=== PATIENT | male | born 1975 | race Caucasian/White ===

== ENCOUNTER 2017-12-09 11:14 | Emergency (ER) | payer SELFPAY ==
[2017-12-09] MEDS: LIDOCAINE WITH 8.4% SOD BICARB 3 ML DISP.SYRIN. INJ (11:45)
== END 2017-12-09 12:43 | disposition home or self-care (01) ==
LOC: ER 11:14
DX: T63.301A Toxic effect of unspecified spider venom, accidental (unintentional), initial encounter (principal); M79.89 Other specified soft tissue disorders; Z86.73 Personal history of transient ischemic attack (TIA), and cerebral infarction without residual deficits; Z88.0 Allergy status to penicillin; Z88.8 Allergy status to other drugs, medicaments and biological substances; Z88.1 Allergy status to other antibiotic agents; Z91.013 Allergy to seafood; Y92.89 Other specified places as the place of occurrence of the external cause
CPT/HCPCS: 10060; 99283

== ENCOUNTER 2018-10-23 11:36 | Emergency (ER) | payer SELFPAY ==
[~2018-10-23] VITALS: Ht 175.3 cm; Wt 113.4 kg
[~2018-10-23 11:36] MED LIST: CLIN300C8 PO; HYDR-2761 PO; PHEN100C PO; PROP120C48 PO; TRAM50TA PO
[2018-10-23] MEDS ORDERED: fentaNYL PF VIAL 100 MCG/2 ML VIAL IV ONE (12:00)
[2018-10-23] MEDS ORDERED: IV NORMAL SALINE 1000ML BAG 1,000 ML IV ONE (12:00)
[2018-10-23] MEDS ORDERED: ONDANSETRON PF 4 MG/2 ML VIAL. IV ONE (12:00)
[2018-10-23] MEDS ORDERED: ONDANSETRON PF 4 MG/2 ML VIAL. ONE (12:10)
[2018-10-23 12:15] LABS: BASO # 0.1 x10^3/uL (0.0-0.2); BASO % 1 % (0-3); EOS # 0.2 x10^3/uL (0.0-0.7); EOS % 2 % (0-3); HEMATOCRIT 45.7 % (39.0-53.0); HEMOGLOBIN 15.7 g/dL (13.0-17.5); LYMPH # 1.6 x10^3/uL (1.0-4.8); LYMPH % 19 % (24-48); MEAN CORPUSCULAR HEMOGLOBIN 30 pg (25-35); MEAN CORPUSCULAR HGB CONC 34 g/dL (31-37); MEAN CORPUSCULAR VOLUME 87 fL (79-100); MONO # 0.8 x10^3/uL (0.0-1.1); MONO % 10 % (0-9); NEUT # 5.7 x10^3uL (1.8-7.7); NEUT % 68 % (31-73); PLATELET COUNT 169 x10^3/uL (140-400); RED BLOOD COUNT 5.25 x10^6/uL (4.30-5.70); RED CELL DISTRIBUTION WIDTH 14.2 % (11.5-14.5); WHITE BLOOD COUNT 8.4 x10^3/uL (4.0-11.0)
--- NOTE | 2018-10-23 12:19 | PHYS DOC ---
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 Patient reports wound started 2-3 days ago and has been gradually worsening with pain radiating into right sided groin. Patient denies fever, urinary symptoms, or other wounds. Patient reports he has felt fatigued and intermittently nauseated denies vomiting or diarrhea episodes. Patient reports he was on metformin 6 months ago for questionable diabetes per his recollection of what doctors reported. Patient states he "didn't like that shit" so he stopped taking the medication. Denies having further f/u with his do ctor. He reports he has had polyuria/polydipsia- with family hx of DM. Patient reports history of seizures but he has been out of his Dilantin for the past month. Patient denies any seizure like activity. Patient reports he is a daily smoker, occasional beer drinker, and marijuana/meth use occasionally. Reports last meth use last week. Accu check during initial exam Review of Systems Review of Systems Constitutional: Denies fever or chills. Reports generalized fatigue Eyes: Denies change in visual acuity, redness, or eye pain [] HENT: Denies nasal congestion or sore throat [] Respiratory: Denies cough or shortness of breath [] Cardiovascular: No additional information not addressed in HPI [] GI: Denies vomiting, bloody stools or diarrhea. Reports rt lower abd pain at wound site into rt groin : Denies dysuria or hematuria [] Musculoskeletal: Denies back pain or joint pain [] Integument: Reports right lower abdominal wound with redness, swelling, and tenderness at site-denies injury or drainage Neurologic: Denies headache, focal weakness or sensory changes [] Endocrine: Reports polyuria or polydipsia [] All other systems were reviewed and found to be within normal limits, except as documented in this note. Current Medications Current Medications Current Medications Medications (Trade) Dose Ordered Sig/Kim Start Time Stop Time Status Last Admin Dose Admin Fentanyl Citrate (Fentanyl 2ml Vial) 25 mcg 1X ONCE 10/23/18 12:00 10/23/18 12:06 DC 10/23/18 12:13 25 MCG Ondansetron HCl (Zofran) 4 mg STK-MED ONCE 10/23/18 12:10 10/23/18 12:11 DC Sodium Chloride 1,000 ml @ 1,000 mls/hr 1X ONCE 10/23/18 12:00 10/23/18 12:59 DC 10/23/18 12:12 1,000 MLS/HR Allergies Allergies Allergies Coded Allergies Type Severity Reaction Last Updated Verified Cephalexin Monohydrate Allergy Unknown 09/27/13 Yes Fish Containing Products Allergy Unknown 09/27/13 Yes Penicillins Allergy Unknown 09/27/13 Yes amoxicillin Allergy Unknown 09/27/13 Yes ondansetron HCl Allergy Unknown 09/26/13 Yes Physical Exam Physical Exam Constitutional: Well developed, well nourished, no acute distress, non-toxic ap pearance. [] HENT: Normocephalic, atraumatic, oropharynx moist, nose normal. [] Eyes: Pupils equal, conjunctiva normal, no discharge. [] Neck: Normal range of motion, no tenderness, supple, no stridor. [] Cardiovascular: Heart rate regular rhythm, no murmur [] Lungs & Thorax: Bilateral breath sounds clear to auscultation- resp. equal/nonlabored Abdomen: Bowel sounds normal, soft/obese- no distention/rigidity, no masses, no pulsatile masses. [] RN at bedside for exam-patient shaves and has multiple scabbed area in suprapubic area- no erythema at site and sites are scabbed. Patient has tenderness in the right groin right side scrotum without erythema/swelling. No penile sores/drainage Skin: Warm, dry, no erythema, no rash. [] Back: No tenderness, no CVA tenderness. [] Extremities: No tenderness, no cyanosis, no clubbing, ROM intact, no edema. [] Neurologic: Alert and oriented X 3, normal motor function, normal sensory function, no focal deficits noted. [] Psychologic: Affect normal, judgement normal, mood normal. [] Current Patient Data Vital Signs Vital Signs Date Time Temp Pulse Resp B/P (MAP) Pulse Ox O2 Delivery O2 Flow Rate FiO2 10/23/18 12:13 18 10/23/18 11:47 98.0 104 156/84 (108) 94 Room Air 98.0 Lab Values Laboratory Tests Test 10/23/18 11:56 10/23/18 12:10 Glucose (Fingerstick) 104 mg/dL (70-99) H White Blood Count 8.4 x10^3/uL (4.0-11.0) Red Blood Count 5.25 x10^6/uL (4.30-5.70) Hemoglobin 15.7 g/dL (13.0-17.5) Hematocrit 45.7 % (39.0-53.0) Mean Corpuscular Volume 87 fL (79-100) Mean Corpuscular Hemoglobin 30 pg (25-35) Mean Corpuscular Hemoglobin Concent 34 g/dL (31-37) Red Cell Distribution Width 14.2 % (11.5-14.5) Platelet Count 169 x10^3/uL (140-400) Neutrophils (%) (Auto) 68 % (31-73) Lymphocytes (%) (Auto) 19 % (24-48) L Monocytes (%) (Auto) 10 % (0-9) H Eosinophils (%) (Auto) 2 % (0-3) Basophils (%) (Auto) 1 % (0-3) Neutrophils # (Auto) 5.7 x10^3uL (1.8-7.7) Lymphocytes # (Auto) 1.6 x10^3/uL (1.0-4.8) Monocytes # (Auto) 0.8 x10^3/uL (0.0-1.1) Eosinophils # (Auto) 0.2 x10^3/uL (0.0-0.7) Basophils # (Auto) 0.1 x10^3/uL (0.0-0.2) Sodium Level 140 mmol/L (136-145) Potassium Level 3.8 mmol/L (3.5-5.1) Chloride Level 103 mmol/L (98-107) Carbon Dioxide Level 28 mmol/L (21-32) Anion Gap 9 (6-14) Blood Urea Nitrogen 16 mg/dL (8-26) Creatinine 1.1 mg/dL (0.7-1.3) Estimated GFR (Cockcroft-Gault) 73.4 BUN/Creatinine Ratio 15 (6-20) Glucose Level 118 mg/dL (70-99) H Lactic Acid Level 1.6 mmol/L (0.4-2.0) Calcium Level 9.1 mg/dL (8.5-10.1) Total Bilirubin 0.3 mg/dL (0.2-1.0) Aspartate Amino Transferase (AST) 26 U/L (15-37) Alanine Aminotransferase (ALT) 34 U/L (16-63) Alkaline Phosphatase 129 U/L (46-116) H Total Protein 7.2 g/dL (6.4-8.2) Albumin 3.4 g/dL (3.4-5.0) Albumin/Globulin Ratio 0.9 (1.0-1.7) L Laboratory Tests 10/23/18 12:10 Laboratory Tests 10/23/18 12:10 EKG EKG [] Radiology/Procedures Radiology/Procedures [] Course & Med Decision Making Course & Med Decision Making Pertinent Labs reviewed. (See chart for details) 1252: Pt was evaluated in the ER for complaints of wound to right lower abdomen. Labs were obtained and patient was provided with IV fluids and dose pain medication. Patient was afebrile and nontoxic in appearance. Labs were unremarkable with normal limits WBCs and lactic acid. Test results were discussed with patient. Discussed plans for prescription for Bactrim and patient to apply warm compress to affected area daily. Will provide patient with community clinic resource sheet for follow-up purposes. Patient advised to continue monitoring wound. Wound was indurated with no area of fluctuation for drainage. Education provided on signs and symptoms to return to ER. Discharge instructions were discussed. Patient to follow-up with primary care physician if symptoms persist or with any concerns. Pt advised on need for follow-up with his doctor for prescriptions and further care on ongoing medical issues. Drug and smoking cessation was discussed with patient. Patient had not initially reported he was allergic to Bactrim however when RN presented his discharge paperwork with Bactrim prescription he said he does have an allergy. Prescription was switched to clindamycin. Dragon Disclaimer Dragon Disclaimer This electronic medical record was generated, in whole or in part, using a voice recognition dictation system. Departure Departure Impression: Primary Impression: Abscess Additional Impression: Cellulitis Disposition: HOME, SELF-CARE Condition: STABLE Referrals: NO PCP (PCP) Patient Instructions: Abscess, Cellulitis Additional Instructions: Apply warm compress to affected area every 3-4 hours for 20-30 minutes at a time. Wearing jeans place a dressing over the wound to prevent irritation from her belt. Follow-up with your primary care physician for reevaluation and further care. You need to discuss options for treatment for your ongoing medical issues as well. Scripts Clindamycin Hcl (CLINDAMYCIN HCL) 300 Mg Capsule 1 CAP PO TID, #21 CAP 0 Refills Prov: HARVEY CHILDS APRN 10/23/18 Hydrocodone/Apap 5-325 (NORCO 5-325 TABLET) 1 Each Tablet 1 TAB PO PRN Q6HRS PRN for PAIN, #6 TAB 0 Refills No drinking alcohol or driving while taking this medication Prov: HARVEY CHILDS APRN 10/23/18 Problem Qualifiers HARVEY CHILDS APRN October 23, 2018 12:19
[2018-10-23 12:27] LABS: CALCIUM 9.1 mg/dL (8.5-10.1); CREATININE 1.1 mg/dL (0.7-1.3); GFR 73.4; POTASSIUM 3.8 mmol/L (3.5-5.1)
[2018-10-23 12:33] LABS: ALBUMIN 3.4 g/dL (3.4-5.0); ALBUMIN/GLOBULIN RATIO 0.9 (1.0-1.7); TOTAL BILIRUBIN 0.3 mg/dL (0.2-1.0); TOTAL PROTEIN 7.2 g/dL (6.4-8.2)
[2018-10-23] MEDS ORDERED: SULF1TAB24 PO (12:58)
[2018-10-23] MEDS ORDERED: HYDR-3164 PO (12:58)
[2018-10-23 13:13] VITALS: BP 135/80
[2018-10-23] MEDS ORDERED: CLIN300C8 PO (13:24)
== END 2018-10-23 13:25 | disposition home or self-care (01) ==
LOC: ER 11:36
DX: L02.214 Cutaneous abscess of groin (principal); L03.314 Cellulitis of groin; R53.83 Other fatigue; R11.0 Nausea; R30.0 Dysuria; R63.1 Polydipsia; F12.90 Cannabis use, unspecified, uncomplicated; F15.90 Other stimulant use, unspecified, uncomplicated; F17.200 Nicotine dependence, unspecified, uncomplicated; E11.9 Type 2 diabetes mellitus without complications; I10 Essential (primary) hypertension; Z86.73 Personal history of transient ischemic attack (TIA), and cerebral infarction without residual deficits; Z87.442 Personal history of urinary calculi; Z88.1 Allergy status to other antibiotic agents; Z88.0 Allergy status to penicillin; Z88.8 Allergy status to other drugs, medicaments and biological substances; Z91.013 Allergy to seafood
CPT/HCPCS: 36415; 80053; 82962; 83605; 85025; 96374; 99284; J3010; J7030

== ENCOUNTER 2018-11-11 04:24 | Emergency (ER) | payer SELFPAY ==
[~2018-11-11 04:24] MED LIST changes: +HYDR-3164 PO; +SULF1TAB24 PO
== END 2018-11-11 04:40 | disposition left against medical advice (07) ==
LOC: ER 04:24
DX: L02.214 Cutaneous abscess of groin (principal); Z53.21 Procedure and treatment not carried out due to patient leaving prior to being seen by health care provider

== ENCOUNTER 2018-12-23 08:50 | Emergency (ER) | payer SELFPAY ==
[~2018-12-23] VITALS: Ht 175.3 cm; Wt 115.7 kg
[~2018-12-23 08:50] MED LIST changes: +PRED20TA PO
[2018-12-23] MEDS ORDERED: ORPHENADRINE CITRATE 60 MG/2 ML VIAL. IM ONE (09:00)
[2018-12-23] MEDS ORDERED: HYDROcodone/APAP 5/325MG 1 TAB TABLET PO ONE (09:00)
[2018-12-23] MEDS ORDERED: IBUPROFEN 200 MG TABLET. PO ONE (09:00)
--- NOTE | 2018-12-23 09:12 | PHYS DOC ---
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 HPI Patient is a 43 year old male who presents with states 3 days ago his cousin was "duck walking" , spine to try to get his back to pop. Patient states when this occurred he felt a pop or crushing pain in his left ribs and the pain is gotten progressively worse to where he feels like something is sticking into his spine. Patient states she did go to [facility] after this occurred in they took x-rays and said nothing was wrong. Patient states the pain is gotten progressively worse and he is not spitting up blood. Patient rates his pain a 10 out 10 at this time. Review of Systems Review of Systems Constitutional: Denies fever or chills [] Eyes: Denies change in visual acuity, redness, or eye pain [] HENT: Denies nasal congestion or sore throat [] Respiratory: cough with blood or shortness of breath [] Cardiovascular: No additional information not addressed in HPI [] GI: Denies abdominal pain, nausea, vomiting, bloody stools or diarrhea [] : Denies dysuria or hematuria [] Musculoskeletal: back pain and left rib pain or joint pain [] Integument: Denies rash or skin lesions [] Neurologic: Denies headache, focal weakness or sensory changes [] Endocrine: Denies polyuria or polydipsia [] All other systems were reviewed and found to be within normal limits, except as documented in this note. Current Medications Current Medications Current Medications Medications (Trade) Dose Ordered Sig/[facility] Start Time Stop Time Status Last Admin Dose Admin Acetaminophen/ Hydrocodone Bitart (Lortab 5/325) 1 tab 1X ONCE 12/23/18 09:00 12/23/18 09:02 DC 12/23/18 09:26 1 TAB Fentanyl Citrate (Fentanyl 2ml Vial) 50 mcg 1X ONCE 12/23/18 10:00 12/23/18 10:01 DC 12/23/18 10:09 50 MCG Ibuprofen (Motrin) 600 mg 1X ONCE 12/23/18 09:00 12/23/18 09:02 DC 12/23/18 09:26 600 MG Orphenadrine Citrate (Norflex) 60 mg 1X ONCE 12/23/18 09:00 12/23/18 09:02 DC 12/23/18 09:37 60 MG Allergies Allergies Allergies Coded Allergies Type Severity Reaction Last Updated Verified Cephalexin Monohydrate Allergy Intermediate 10/23/18 Yes Fish Containing Products Allergy Intermediate 10/23/18 Yes Penicillins Allergy Intermediate 10/23/18 Yes amoxicillin Allergy Intermediate 10/23/18 Yes ondansetron HCl Allergy Intermediate 10/23/18 Yes sulfamethoxazole Allergy Intermediate HANDS SWELL 10/23/18 Yes trimethoprim Allergy Intermediate HANDS SWELL 10/23/18 Yes Physical Exam Physical Exam Constitutional: Well developed, well nourished, no acute distress, non-toxic appearance. [] HENT: Normocephalic, atraumatic, bilateral external ears normal, oropharynx moist, no oral exudates, nose normal. [] Eyes: PERRLA, EOMI, conjunctiva normal, no discharge. [] Neck: Normal range of motion, no tenderness, supple, no stridor. [] Cardiovascular:Heart rate regular rhythm, no murmur [] Lungs & Thorax: Upper Bilateral breath sounds clear to auscultation, Left lower coarse, right lower clear [] Abdomen: Bowel sounds normal, soft, no tenderness, no masses, no pulsatile masses. [] Skin: Warm, dry, no erythema, no rash. [] Back: Cervical, thoracic, left ribs tenderness, no CVA tenderness. [] Extremities: No tenderness, no cyanosis, no clubbing, ROM intact, Bilateral lower 3+ edema. [] Neurologic: Alert and oriented X 3, normal motor function, normal sensory function, no focal deficits noted. [] Psychologic: Affect normal, judgement normal, mood normal. [] Current Patient Data Vital Signs Vital Signs Date Time Temp Pulse Resp B/P (MAP) Pulse Ox O2 Delivery O2 Flow Rate FiO2 12/23/18 11:08 90 168/78 (108) 100 Room Air 12/23/18 10:09 18 12/23/18 08:57 98.0 98.0 Lab Values Laboratory Tests Test 12/23/18 11:25 D-Dimer (Leena) 0.43 ug/mlFEU (0.00-0.50) EKG EKG Sinus Rhythm and no STEMI Interpretation Time: [address] Bennett Radiology/Procedures Radiology/Procedures [] Impressions: [facility] [address] [place] [address] IMAGING REPORT Signed PATIENT: GLEN ONTIVEROS ACCOUNT: [id number] : 1975 LOCATION: ER AGE: 43 SEX: M EXAM STATUS: REG ER ORD. PHYSICIAN: LINDA HINES APRN REASON: point tenderness, soa, Left rib pain more prominent PROCEDURE: RIBS BILAT & PA CXR 4+V RIBS BILAT PA CXR 4+V History: Shortness of breath. Left rib pain. COMPARISON: Single view chest x-ray of November 01, 2008, images available but not the report. FINDINGS: Heart size is not enlarged. No evidence of pneumothorax or pleural effusion. There are mild markings in the lung bases, likely atelectasis, no lobar airspace consolidation. There is a small metallic density or foreign body at the inferior left neck soft tissue. This was seen on the prior chest x-ray. No definite displaced rib fracture seen, although a specific area of point tenderness is not known. IMPRESSION: Mild bibasilar lung markings, likely atelectasis. Electronically signed by: Stanton Wilkinson MD (12/23/2018 9:53 AM) [id number] DICTATED and SIGNED BY: STANTON WILKINSON MD DATE: 12/23/18 0953 [facility] [address] [place], [place] [id number] IMAGING REPORT Signed PATIENT: GLEN ONTIVEROS ACCOUNT: [id number] : 1975 LOCATION: ER AGE: 43 SEX: M EXAM STATUS: REG ER ORD. PHYSICIAN: LINDA HINES APRN REASON: point tenderness PROCEDURE: CT CERVICAL SPINE WO CONTRAST Examination: CT cervical spine and thoracic spine without contrast HISTORY: History of pain, point tenderness. TECHNIQUE: Axial CT images of the cervical thoracic spine were performed without contrast. Coronal and sagittal reformats are performed. Exposure: One or more of the following individualized dose reduction techniques were utilized for this examination: 1. Automated exposure control 2. Adjustment of the mA and/or kV according to patient size 3. Use of iterative reconstruction technique COMPARISON: 07/19/2007 cervical spine FINDINGS: Vertebral body height and alignment are maintained. Cervical lordosis is preserved. The lateral masses of C1 are aligned upon C2. No fractures identified. The bony canal is patent throughout. Mild intervertebral disc height loss identified in the cervical spine particularly at C5-C6, C6 and vertebral levels. The bilateral facets are well aligned. The paraspinous soft tissues are unremarkable. Visualized intracranial contents are unremarkable. Lung apices are clear. The thoracic vertebral bodies are aligned. There is no loss of vertebral body stature. Evaluation of the central canal is limited without contrast. Mild intervertebral disc height loss identified throughout the thoracic spine. The bilateral facets are well aligned. Impression: 1. No acute fracture of the cervical and thoracic spine. 2. Mild degenerative changes cervical spine and thoracic spine. Electronically signed by: Medardo Aguila MD (12/23/2018 11:07 AM) [facility] DICTATED and SIGNED BY: MEDARDO AGUILA MD DATE: 12/23/18 1107 Course & Med Decision Making Course & Med Decision Making Patient is a 43 year old male who presents with states 3 days ago his cousin was "duck walking" , spine to try to get his back to pop. Patient states when this occurred he felt a pop or crushing pain in his left ribs and the pain is gotten progressively worse to where he feels like something is sticking into his spine. Patient states she did go to [facility] after this occurred in they took x-rays and said nothing was wrong. Patient states the pain is gotten progressively worse and he is not spitting up blood. Patient rates his pain a 10 out 10 at this time. The pain is sharp and shooting down the back of his bilateral lower legs also. Denies numbness or tingling, Patient has cervical spine bony tenderness down the thoracic and no lumbar tenderness. Patient has left rib tenderness all the way down his left side. No crepitus felt. There is no deformities felt on spine or in ribs. Patient does seem diaphoretic. Skin is pink and warm. Bilateral upper lobe lungs are clear to auscultation but left lower lung is course and right lower lung clear. Heart rate regular without murmur. Patient states is very hard for him to ambulate because of the pain that he feels in his back and that he fell over to the side today. He states his sharp stabbing pain. Patient states it does hurt when he takes a deep breath especially the left side. Patient states he has shortness of breath but denies chest pain, nausea, vomiting, syncope, dizziness. PERRLA. Speaks in full clear sentences. Patient also complains of bilateral lower leg edema that has recently started since this happened 3 days ago. Patient has 3-4+ Edema in bilateral lower extremities. Patient states he's been sitting upright in a recliner with his legs dangling. Patient states this is new for him and states he can usually see his ankles. Patient is a smoker and has a history of TIA, seizures, kidney stones, hypertension, diabetes. Vital signs wnl. Patient was refusing CT scans of his spine due to was too painful to lay back. Patient states the [place], ibuprofen, orphenadrine was not coming is painful enough that he can lay flat. I have told the patient he is having point tenderness spinal pain and I can not properly;y evaluate him without CT. Patient states he understands this and agrees to a pain shot. Xray shows Mild bibasilar lung markings, likely atelectasis. CT shows 1. No acute fracture of the cervical and thoracic spine. 2. Mild degenerative changes cervical spine and thoracic spine. DDIMER negative. Patient will be given a incentive spirometer due to atelectasis because patient is likely not taking a deep breath due to pain. Follow up with primary care. Take medications as prescribed. [] Dragon Disclaimer Dragon Disclaimer This electronic medical record was generated, in whole or in part, using a voice recognition dictation system. PERC Rule for PE PERC Rule for PE Response (Comments) Value Age > 50: No 0 HR > 100: No 0 Sa02 on room air <95%: No 0 Unilateral leg swelling: No 0 Hemoptysis: Yes 1 Recent surgery or trauma: No 0 Prior PE or DVT: No 0 Hormone use: No 0 Total 1 Departure Departure Impression: Primary Impression: Muscle spasm Additional Impression: Contusion Disposition: HOME, SELF-CARE Condition: STABLE Referrals: NO PCP (PCP) Patient Instructions: Back Pain, Adult, Muscle Strain Additional Instructions: Follow-up her primary care provider. Take medications as prescribed. Try using a heating pad. Scripts Ibuprofen (IBUPROFEN) 600 Mg Tablet 600 MG PO PRN Q6HRS PRN for INFLAMMATION, #20 TAB Prov: ILNDA HINES APRN 12/23/18 Hydrocodone Bit/Acetaminophen (HYDROCODONE-APAP 5-325 ) 1 Tab Tablet 1 TAB PO PRN Q6HRS PRN for PAIN, #10 TAB 0 Refills Prov: LINDA HINES APRN 12/23/18 Orphenadrine Citrate (ORPHENADRINE CITRATE) 100 Mg Tablet.er 1 TAB PO BID, #20 TAB 1 Refill Prov: LINDA HINES APRN 12/23/18 Problem Qualifiers Additional Impression: Contusion Encounter type: initial encounter Contusion area: thoracic wall Contusion of thoracic wall detail: back wall of thorax Laterality: left Qualified Codes: S20.222A - Contusion of left back wall of thorax, initial encounter LINDA HINES APRN Dec 23, 2018 09:12
--- NOTE | 2018-12-23 09:56 | RAD ---
RIBS BILAT PA CXR 4+V History: Shortness of breath. Left rib pain. COMPARISON: Single view chest x-ray of November 01, 2008, images available but not the report. FINDINGS: Heart size is not enlarged. No evidence of pneumothorax or pleural effusion. There are mild markings in the lung bases, likely atelectasis, no lobar airspace consolidation. There is a small metallic density or foreign body at the inferior left neck soft tissue. This was seen on the prior chest x-ray. No definite displaced rib fracture seen, although a specific area of point tenderness is not known. IMPRESSION: Mild bibasilar lung markings, likely atelectasis. Electronically signed by: Stanton Wilkinson MD (12/23/2018 9:53 AM) [facility]
[2018-12-23] MEDS ORDERED: fentaNYL PF VIAL 100 MCG/2 ML VIAL IV ONE (10:00)
--- NOTE | 2018-12-23 11:06 | EKG ---
[facility] [address] [place] [address] Test Date: 2018-12-23 Test Time: 09:30:53 Pat Name: GLEN ONTIVEROS Department: Room: Gender: M Director Payer: : 1975 Requested By: LINDA HINES Order Number: [id number] Reading MD: Measurements Intervals [place] Rate: 79 P: 32 MT: 158 QRS: 16 QRSD: 84 T: 23 QT: 366 QTc: 421 Interpretive Statements SINUS RHYTHM NO SPECIFIC ECG ABNORMALITIES RI6.01 No previous ECG available for comparison
--- NOTE | 2018-12-23 11:10 | RAD ---
Examination: CT cervical spine and thoracic spine without contrast HISTORY: History of pain, point tenderness. TECHNIQUE: Axial CT images of the cervical thoracic spine were performed without contrast. Coronal and sagittal reformats are performed. Exposure: One or more of the following individualized dose reduction techniques were utilized for this examination: 1. Automated exposure control 2. Adjustment of the mA and/or kV according to patient size 3. Use of iterative reconstruction technique COMPARISON: 07/19/2007 cervical spine FINDINGS: Vertebral body height and alignment are maintained. Cervical lordosis is preserved. The lateral masses of C1 are aligned upon C2. No fractures identified. The bony canal is patent throughout. Mild intervertebral disc height loss identified in the cervical spine particularly at C5-C6, C6 and vertebral levels. The bilateral facets are well aligned. The paraspinous soft tissues are unremarkable. Visualized intracranial contents are unremarkable. Lung apices are clear. The thoracic vertebral bodies are aligned. There is no loss of vertebral body stature. Evaluation of the central canal is limited without contrast. Mild intervertebral disc height loss identified throughout the thoracic spine. The bilateral facets are well aligned. Impression: 1. No acute fracture of the cervical and thoracic spine. 2. Mild degenerative changes cervical spine and thoracic spine. Electronically signed by: Medardo Aguila MD (12/23/2018 11:07 AM) [facility]
[2018-12-23] MEDS ORDERED: HYDR-2761 PO (12:11)
[2018-12-23] MEDS ORDERED: ORPH100T PO (12:11)
[2018-12-23] MEDS ORDERED: IBUP-1007 PO (12:11)
[2018-12-23 12:38] VITALS: BP 119/57
== END 2018-12-23 12:50 | disposition home or self-care (01) ==
LOC: ER 08:50
DX: S20.222A Contusion of left back wall of thorax, initial encounter (principal); S20.212A Contusion of left front wall of thorax, initial encounter; M62.830 Muscle spasm of back; E11.9 Type 2 diabetes mellitus without complications; I10 Essential (primary) hypertension; Z86.73 Personal history of transient ischemic attack (TIA), and cerebral infarction without residual deficits; Z87.442 Personal history of urinary calculi; Z88.2 Allergy status to sulfonamides; Z88.8 Allergy status to other drugs, medicaments and biological substances; Z88.1 Allergy status to other antibiotic agents; Z88.0 Allergy status to penicillin; Z91.013 Allergy to seafood; X50.9XXA Other and unspecified overexertion or strenuous movements or postures, initial encounter; Y93.89 Activity, other specified; Y92.89 Other specified places as the place of occurrence of the external cause; Y99.8 Other external cause status
CPT/HCPCS: 36415; 71111; 72125; 72128; 85379; 93005; 96372; 96374; 99285; J2360; J3010

== ENCOUNTER 2019-02-24 14:57 | Emergency (ER) | payer SELFPAY ==
[~2019-02-24] VITALS: Ht 175.3 cm; Wt 122.5 kg
[~2019-02-24 14:57] MED LIST changes: +IBUP-1007 PO; +ORPH100T PO
[2019-02-24 16:03] VITALS: BP 137/81
--- NOTE | 2019-02-24 16:29 | PHYS DOC ---
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 Patient denies any fever. Review of Systems Review of Systems Constitutional: Denies fever or chills [] Musculoskeletal: Denies back pain or joint pain [] Integument: Reports abscess to the right buttock Neurologic: Denies headache, focal weakness or sensory changes [] All other systems were reviewed and found to be within normal limits, except as documented in this note. Allergies Allergies Allergies Coded Allergies Type Severity Reaction Last Updated Verified Cephalexin Monohydrate Allergy Intermediate 10/23/18 Yes Fish Containing Products Allergy Intermediate 10/23/18 Yes Penicillins Allergy Intermediate 10/23/18 Yes amoxicillin Allergy Intermediate 10/23/18 Yes ondansetron HCl Allergy Intermediate 10/23/18 Yes sulfamethoxazole Allergy Intermediate HANDS SWELL 10/23/18 Yes trimethoprim Allergy Intermediate HANDS SWELL 10/23/18 Yes Physical Exam Physical Exam Constitutional: Well developed, well nourished, no acute distress, non-toxic appearance. [] Skin: Warm, dry, right buttock with an indurated area approximately 1 x 1 cm, the area is firm no fluctuance, there is erythema surrounding the area, the area is warm and tender to touch. Back: No tenderness, no CVA tenderness. [] Extremities: No tenderness, no cyanosis, no clubbing, ROM intact, no edema. [] Neurologic: Alert and oriented X 3, normal motor function, normal sensory function, no focal deficits noted. [] Psychologic: Affect normal, judgement normal, mood normal. [] Current Patient Data Vital Signs Vital Signs Date Time Temp Pulse Resp B/P (MAP) Pulse Ox O2 Delivery O2 Flow Rate FiO2 02/24/19 16:03 98.5 80 16 137/81 (99) 97 Room Air 98.5 EKG EKG [] Radiology/Procedures Radiology/Procedures Indication: abscess right buttock Procedure: The patient was positioned appropriately. Local anesthesia was not applicable. An 18-gauge needle was used to aspirate the area to find any fluctuance, none was found. The patient tolerated the procedure well. Complications: none.[] Course & Med Decision Making Course & Med Decision Making Pertinent Labs and Imaging studies reviewed. (See chart for details) This is a 43-year-old male patient who presents to the ED today with an abscess on the right buttock, I did attempt to drain this abscess with no success. Discharged on clindamycin, he is allergic to a lot of antibiotics. Tetanus up-to-date. Warm compresses recommended to the area. Follow-up with PCP in 1-2 weeks. Dragon Disclaimer Dragon Disclaimer This electronic medical record was generated, in whole or in part, using a voice recognition dictation system. Departure Departure Impression: Primary Impression: Cellulitis and abscess of buttock Disposition: HOME, SELF-CARE Condition: STABLE Referrals: NO PCP (PCP) VARUN LAKHANI MD follow up in 1-2 weeks Patient Instructions: Abscess Additional Instructions: You have an abscess on the right buttock, keep the area clean and dry. Apply warm compresses to the area twice a day. Follow-up with your own doctor in 1-2 weeks. Scripts Hydrocodone/Apap 5-325 (NORCO 5-325 TABLET) 1 Each Tablet 1 TAB PO Q6HRS, #12 TAB Prov: TANISHA KAUR APRN 02/24/19 Clindamycin Hcl (CLINDAMYCIN HCL) 300 Mg Capsule 1 CAP PO TID, #21 CAP Prov: TANISHA KAUR APRN 02/24/19 TANISHA KAUR APRN Feb 24, 2019 16:29
[2019-02-24] MEDS ORDERED: HYDR-3164 PO (16:34)
[2019-02-24] MEDS ORDERED: CLIN300C8 PO (16:34)
== END 2019-02-24 16:37 | disposition home or self-care (01) ==
LOC: ER 14:57
DX: L02.31 Cutaneous abscess of buttock (principal); E11.9 Type 2 diabetes mellitus without complications; I10 Essential (primary) hypertension; Z86.73 Personal history of transient ischemic attack (TIA), and cerebral infarction without residual deficits; Z95.5 Presence of coronary angioplasty implant and graft; Z87.442 Personal history of urinary calculi
CPT/HCPCS: 10060; 99283

== ENCOUNTER 2019-03-02 04:22 | Emergency (ER) | payer SELFPAY ==
[~2019-03-02] VITALS: Ht 175.3 cm; Wt 122.5 kg
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
[2019-03-02] MEDS ORDERED: HYDROcodone/APAP 5/325MG 1 TAB TABLET PO ONE (05:00)
[2019-03-02 05:08] LABS: BASO # 0.1 x10^3/uL (0.0-0.2); BASO % 1 % (0-3); EOS # 0.3 x10^3/uL (0.0-0.7); EOS % 5 % (0-3); HEMATOCRIT 43.8 % (39.0-53.0); LYMPH # 1.3 x10^3/uL (1.0-4.8); LYMPH % 21 % (24-48); MEAN CORPUSCULAR HEMOGLOBIN 30 pg (25-35); MEAN CORPUSCULAR HGB CONC 34 g/dL (31-37); MEAN CORPUSCULAR VOLUME 88 fL (79-100); MONO # 0.7 x10^3/uL (0.0-1.1); MONO % 11 % (0-9); NEUT # 3.9 x10^3/uL (1.8-7.7); NEUT % 62 % (31-73); PLATELET COUNT 171 x10^3/uL (140-400); RED BLOOD COUNT 4.96 x10^6/uL (4.30-5.70); RED CELL DISTRIBUTION WIDTH 14.2 % (11.5-14.5); WHITE BLOOD COUNT 6.3 x10^3/uL (4.0-11.0)
[2019-03-02 05:15] LABS: CALCIUM 8.8 mg/dL (8.5-10.1); CREATININE 1.1 mg/dL (0.7-1.3); GFR 73.1; POTASSIUM 3.8 mmol/L (3.5-5.1)
[2019-03-02 05:21] LABS: ALBUMIN 3.3 g/dL (3.4-5.0); TOTAL BILIRUBIN 0.2 mg/dL (0.2-1.0); TOTAL PROTEIN 6.7 g/dL (6.4-8.2)
[2019-03-02] MEDS ORDERED: CONTRAST GIVEN. MC PRN (05:30)
--- NOTE | 2019-03-02 05:39 | RAD ---
EXAM: CHEST ONE VIEW. HISTORY: Cough, chest pain. COMPARISON: 09/27/2013. FINDINGS: A frontal view of the chest is obtained. There are no confluent infiltrates. There is no pneumothorax or pleural effusion. The heart is mildly enlarged. IMPRESSION: 1. Mild cardiomegaly. Electronically signed by: Zeb Eden MD (03/02/2019 5:36 AM) [facility]
[2019-03-02] MEDS ORDERED: IOHEXOL 300 MG/ML 100ML VIAL. IV ONE (06:00)
--- NOTE | 2019-03-02 06:30 | RAD ---
EXAM: CT OF THE CHEST WITH CONTRAST. HISTORY: Hemoptysis. TECHNIQUE: Computed tomography of the chest was performed after the intravenous administration of iodinated contrast. COMPARISON: None. FINDINGS: Images of the upper abdomen reveal moderate diffuse hepatic steatosis. Bone windows reveal no suspicious lesions. There is a subacute to chronic left anterior seventh rib fracture. There are no pathologically enlarged mediastinal or axillary lymph nodes. There is no pleural or pericardial effusion. The heart is not enlarged. There are atherosclerotic calcifications of the coronary arteries. A windows reveal mild dependent atelectasis. There is no central bronchial lesion. IMPRESSION: 1. No central or bronchial lesion. No clear infiltrates. 2. At least moderate diffuse hepatic steatosis. *One or more of the following individualized dose reduction techniques were utilized for this examination: 1. Automated exposure control. 2. Adjustment of the mA and/or kV according to patient size. 3. Use of iterative reconstruction technique. Electronically signed by: Zeb Eden MD (03/02/2019 6:27 AM) [facility]
[2019-03-02] MEDS ORDERED: HYDR-3164 PO (06:57)
[2019-03-02] MEDS ORDERED: AZIT250T6 PO (06:57)
[2019-03-02 06:58] VITALS: BP 154/81
== END 2019-03-02 07:05 | disposition home or self-care (01) ==
LOC: ER 04:22
DX: R07.81 Pleurodynia (principal); R05 Cough; G89.11 Acute pain due to trauma; E11.9 Type 2 diabetes mellitus without complications; I10 Essential (primary) hypertension; Z86.73 Personal history of transient ischemic attack (TIA), and cerebral infarction without residual deficits; Z87.820 Personal history of traumatic brain injury; Z88.1 Allergy status to other antibiotic agents; Z91.013 Allergy to seafood; Z88.0 Allergy status to penicillin; Z88.2 Allergy status to sulfonamides; Z88.8 Allergy status to other drugs, medicaments and biological substances; V29.9XXA Motorcycle rider (driver) (passenger) injured in unspecified traffic accident, initial encounter; Y93.89 Activity, other specified; Y92.488 Other paved roadways as the place of occurrence of the external cause; Y99.8 Other external cause status
CPT/HCPCS: 36415; 71045; 71260; 80053; 85025; 99285; Q9967

== ENCOUNTER 2019-06-11 02:44 | Emergency (ER) | payer SELFPAY ==
[~2019-06-11] VITALS: Ht 175.3 cm; Wt 113.4 kg
[~2019-06-11 02:44] MED LIST changes: +AZIT250T6 PO
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
--- NOTE | 2019-06-11 03:20 | RAD ---
Right hand x-rays 3 views HISTORY: Right hand pain after trauma finding. FINDINGS: There is an old healed deformity of the fourth metacarpal head. There is a small 2 mm calcification along the radial aspect of the first MCP joint could represent a small ligament calcification from an old injury while a avulsion fracture fragment of the joint capsule or ligament at the joint is not excluded there is no bone donor site is evident and the sclerotic nature favors a chronic injury.. Osteoarthritis with bone spurs fourth and fifth DIP joints and at the first MCP joint. The remainder of the hand is intact. IMPRESSION: No definite acute osseous injury. 2 mm sclerotic calcification adjacent of the first MCP joint likely chronic ossicle from an old ligamentous or capsular injury. Osteoarthritis. See discussion above. Electronically signed by: Vicente Shields MD (06/11/2019 3:17 AM) [facility]
[2019-06-11 03:30] LABS: BASO # 0.1 x10^3/uL (0.0-0.2); BASO % 1 % (0-3); EOS # 0.3 x10^3/uL (0.0-0.7); EOS % 3 % (0-3); HEMATOCRIT 43.7 % (39.0-53.0); LYMPH # 1.5 x10^3/uL (1.0-4.8); LYMPH % 16 % (24-48); MEAN CORPUSCULAR HEMOGLOBIN 30 pg (25-35); MEAN CORPUSCULAR HGB CONC 34 g/dL (31-37); MEAN CORPUSCULAR VOLUME 87 fL (79-100); MONO # 0.9 x10^3/uL (0.0-1.1); MONO % 10 % (0-9); NEUT # 6.3 x10^3/uL (1.8-7.7); NEUT % 70 % (31-73); PLATELET COUNT 223 x10^3/uL (140-400); RED BLOOD COUNT 5.03 x10^6/uL (4.30-5.70); RED CELL DISTRIBUTION WIDTH 13.6 % (11.5-14.5); WHITE BLOOD COUNT 8.9 x10^3/uL (4.0-11.0)
[2019-06-11] MEDS ORDERED: ONDANSETRON ODT 4 MG TAB.RAPDIS. PO ONE (03:30)
[2019-06-11 03:42] LABS: CALCIUM 8.5 mg/dL (8.5-10.1); CREATININE 1.1 mg/dL (0.7-1.3); GFR 73.1; POTASSIUM 3.8 mmol/L (3.5-5.1)
[2019-06-11 03:48] LABS: ALBUMIN 3.2 g/dL (3.4-5.0); ALBUMIN/GLOBULIN RATIO 0.8 (1.0-1.7); TOTAL BILIRUBIN 0.4 mg/dL (0.2-1.0); TOTAL PROTEIN 7.3 g/dL (6.4-8.2)
[2019-06-11 03:50] VITALS: BP 127/71
[2019-06-11] MEDS ORDERED: CLIN300C8 PO (03:52)
[2019-06-11 03:55] LABS: BILIRUBIN,URINE NEGATIVE (NEG); CLARITY,URINE CLEAR; COLOR,URINE YELLOW; NITRITE,URINE NEGATIVE (NEG); PH,URINE 5.5; PROTEIN,URINE NEGATIVE (NEG-TRACE)
[2019-06-11 04:14] LABS: BACTERIA,URINE 0 /HPF (0-FEW); RBC,URINE 0 /HPF (0-2); WBC,URINE 0 /HPF (0-4)
[2019-06-11] MEDS ORDERED: KETOROLAC 60 MG/2 ML VIAL. IM ONE (04:30)
[2019-06-11] MEDS ORDERED: CLIN75SO12 PO (04:31)
== END 2019-06-11 04:50 | disposition home or self-care (01) ==
LOC: ER 02:44
DX: L73.2 Hidradenitis suppurativa (principal); L02.412 Cutaneous abscess of left axilla; L02.411 Cutaneous abscess of right axilla; M79.641 Pain in right hand; R31.9 Hematuria, unspecified; E11.9 Type 2 diabetes mellitus without complications; I10 Essential (primary) hypertension; F14.90 Cocaine use, unspecified, uncomplicated; F12.90 Cannabis use, unspecified, uncomplicated; Z86.73 Personal history of transient ischemic attack (TIA), and cerebral infarction without residual deficits; Z98.890 Other specified postprocedural states; Z88.1 Allergy status to other antibiotic agents; Z88.0 Allergy status to penicillin; Z88.2 Allergy status to sulfonamides; Z91.013 Allergy to seafood
CPT/HCPCS: 36415; 73130; 80053; 81001; 85025; 99285; Q0162

== ENCOUNTER 2019-12-17 17:06 | Emergency (ER) | payer SELFPAY ==
[~2019-12-17] VITALS: Ht 175.3 cm; Wt 122.7 kg
[~2019-12-17 17:06] MED LIST changes: +CLIN75SO12 PO
[2019-12-17] MEDS ORDERED: KETOROLAC 60 MG/2 ML VIAL. IM ONE (17:30)
[2019-12-17] MEDS ORDERED: ORPHENADRINE CITRATE 60 MG/2 ML VIAL. IM ONE (17:30)
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
[2019-12-17] MEDS ORDERED: METH-38 PO (17:43)
[2019-12-17] MEDS ORDERED: NAPR-514 PO (17:43)
--- NOTE | 2019-12-17 17:48 | RAD ---
Examination: CHEST AP ONLY History: Reason: trauma / Spl. Instructions: / History: Comparison: 03/02/2019 AP view of the chest. Findings: AP portable upright frontal view of the chest was obtained. The cardiomediastinal silhouette is normal. Lungs are clear. There is no pneumothorax. No pleural effusion is appreciated. No acute bone abnormality. IMPRESSION: No active disease. Consider further imaging if fracture is a persistent concern. Electronically signed by: Angus Adams MD (12/17/2019 5:45 PM) [id number]
[2019-12-17 18:00] VITALS: BP 155/86
== END 2019-12-17 18:15 | disposition home or self-care (01) ==
LOC: ER 17:06
DX: G89.11 Acute pain due to trauma (principal); R07.81 Pleurodynia; E11.9 Type 2 diabetes mellitus without complications; I10 Essential (primary) hypertension; F17.200 Nicotine dependence, unspecified, uncomplicated; F12.90 Cannabis use, unspecified, uncomplicated; F14.90 Cocaine use, unspecified, uncomplicated; Z86.73 Personal history of transient ischemic attack (TIA), and cerebral infarction without residual deficits; Z98.890 Other specified postprocedural states; Z88.0 Allergy status to penicillin; Z88.1 Allergy status to other antibiotic agents; Z88.2 Allergy status to sulfonamides; Z91.013 Allergy to seafood; Z88.8 Allergy status to other drugs, medicaments and biological substances; Y00.XXXA Assault by blunt object, initial encounter; Y93.89 Activity, other specified; Y92.89 Other specified places as the place of occurrence of the external cause; Y99.8 Other external cause status
CPT/HCPCS: 71045; 96372; 99284; J1885; J2360

== ENCOUNTER 2020-01-24 11:15 | Inpatient (IN) | payer SELFPAY ==
[~2020-01-24] VITALS: Ht 175.3 cm; Wt 131.0 kg
[~2020-01-24 11:15] MED LIST changes: +METH-38 PO; +NAPR-514 PO
--- NOTE | 2020-01-24 12:07 | EKG ---
[facility] [address] [place] [address] Test Date: 2020-01-24 Test Time: 11:56:54 Pat Name: GLEN ONTIVEROS Department: Room: Gender: M [place]: : 1975 Requested By: MARA BO Order Number: [id number] Reading MD: Measurements Intervals [place] Rate: 107 P: 22 CT: 148 QRS: 26 QRSD: 80 T: 27 QT: 334 QTc: 451 Interpretive Statements SINUS TACHYCARDIA LOW LIMB LEAD VOLTAGE NO SPECIFIC ECG ABNORMALITIES RI6.02 Compared to ECG 01/24/2020 11:46:33 Atrial abnormality no longer present Myocardial infarct finding no longer present
[2020-01-24 12:21] LABS: BASO # 0.1 x10^3/uL (0.0-0.2); BASO % 1 % (0-3); EOS # 0.1 x10^3/uL (0.0-0.7); EOS % 2 % (0-3); HEMATOCRIT 44.9 % (39.0-53.0); HEMOGLOBIN 15.5 g/dL (13.0-17.5); LYMPH # 0.9 x10^3/uL (1.0-4.8); LYMPH % 10 % (24-48); MEAN CORPUSCULAR HEMOGLOBIN 30 pg (25-35); MEAN CORPUSCULAR HGB CONC 35 g/dL (31-37); MEAN CORPUSCULAR VOLUME 88 fL (79-100); MONO # 0.9 x10^3/uL (0.0-1.1); MONO % 9 % (0-9); NEUT # 7.3 x10^3/uL (1.8-7.7); NEUT % 79 % (31-73); PLATELET COUNT 196 x10^3/uL (140-400); RED BLOOD COUNT 5.12 x10^6/uL (4.30-5.70); RED CELL DISTRIBUTION WIDTH 13.5 % (11.5-14.5); WHITE BLOOD COUNT 9.2 x10^3/uL (4.0-11.0)
[2020-01-24 12:39] LABS: CALCIUM 8.6 mg/dL (8.5-10.1); CREATININE 1.3 mg/dL (0.7-1.3); POTASSIUM 3.8 mmol/L (3.5-5.1)
[2020-01-24 12:45] LABS: ALBUMIN 3.2 g/dL (3.4-5.0); ALBUMIN/GLOBULIN RATIO 0.7 (1.0-1.7); TOTAL BILIRUBIN 0.4 mg/dL (0.2-1.0); TOTAL PROTEIN 7.5 g/dL (6.4-8.2)
[2020-01-24] MEDS ORDERED: IOHEXOL 300 MG/ML 100ML VIAL. IV ONE (12:45)
[2020-01-24] MEDS ORDERED: CONTRAST GIVEN. MC PRN (12:45)
--- NOTE | 2020-01-24 13:13 | RAD ---
CT HEAD AND CERVICAL SPINE WO Date: 01/24/2020 12:50 PM Clinical Indication: Fall off of fence pain from neck to pelvis, w/recon Comparison: CT C-spine 12/23/2018. Technique: 5 mm axial tomographic images were obtained of the head without contrast. These were viewed on brain and bone windows. CT imaging of the cervical spine was performed without contrast. Coronal and sagittal reformatted images were performed. One or more of the following dose reduction techniques were utilized: Automated exposure control (AEC), Adjustment of mA and/or kV according to patient size, Use of iterative reconstruction technique such as ASiR, CT scan done according to ALARA and image gently/image wisely HEAD FINDINGS: The brain parenchyma is normal in attenuation. No intra- or extra-axial mass or fluid collection. No acute hemorrhage. The ventricles are normal in size, shape, and morphology. The gusman-white matter junction is normal. The basilar cisterns are patent. The visualized paranasal sinuses are normal. The visualized portions of the orbits and globes are normal. The mastoid air cells are clear. No aggressive osseous lesion or fracture. CERVICAL SPINE FINDINGS: Straightening of the cervical lordosis. No acute fracture. No aggressive lytic or blastic osseous lesion. Mild multilevel degenerative disc height loss. No high-grade spinal canal stenosis or neural foraminal narrowing. The thyroid gland is normal. No cervical lymphadenopathy. The visualized aerodigestive tract is unremarkable. The visualized lung apices are clear. IMPRESSION: 1. No acute intracranial process. 2. No acute osseous abnormality of the cervical spine. Electronically signed by: Junito Soria MD (01/24/2020 1:10 PM) [id number]
[2020-01-24] MEDS ORDERED: IV NORMAL SALINE 1000ML BAG 1,000 ML IV ONE (13:15)
[2020-01-24] MEDS ORDERED: KETOROLAC 30 MG/ML VIAL. IV ONE (13:15)
[2020-01-24] MEDS ORDERED: ORPHENADRINE CITRATE 60 MG/2 ML VIAL. IM ONE (13:15)
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
--- NOTE | 2020-01-24 13:45 | RAD ---
EXAM: Chest, abdomen and pelvis CT with intravenous contrast; thoracic and lumbar spine CT without contrast. HISTORY: Fall from fence. TECHNIQUE: Computed tomographic images of the chest, abdomen and pelvis were obtained following the administration of intravenous contrast. Reconstructed images of the thoracic and lumbar spine were also obtained. *One or more of the following individualized dose reduction techniques were utilized for this examination: 1. Automated exposure control. 2. Adjustment of the mA and/or kV according to patient size. 3. Use of iterative reconstruction technique. COMPARISON: 03/02/2019 and 12/23/2018. FINDINGS: Chest: Evaluation of the thorax is limited due to patient arm positioning anterior to the chest wall. There is no evidence of traumatic mediastinal injury. The heart is normal in size and the aorta is normal in caliber. There is no mediastinal or hilar lymphadenopathy. There is no pleural effusion. There is no pneumothorax. There is mild bilateral posterior dependent and basilar atelectasis. There is no infiltrate or suspicious pulmonary nodule. There are subacute appearing fractures of the anterior lateral right third, fourth, fifth, sixth, seventh and eighth ribs. The presence of callus formation favors a subacute etiology. No contralateral rib fracture is seen. No sternal fracture is seen despite limitations due to arm positioning. Abdomen and pelvis: There is hepatic steatosis and hepatomegaly. There is no suspicious hepatic lesion. The gallbladder, pancreas, spleen, adrenal glands and kidneys are unremarkable. There is no appendicitis. There is no bowel obstruction or abnormal bowel wall thickening. The urinary bladder is unremarkable. There is a normal caliber aorta. There is no lymphadenopathy. No pelvic fracture is seen. Thoracic spine: No fracture is seen. There is endplate remodeling at multiple levels. There is a small amount of dystrophic ossification between the fourth and fifth spinous processes. There are degenerative changes involving the visualized inferior cervical spine, better characterized on a cervical spine CT obtained on the same date. There is mild foraminal stenosis of the proximal thoracic levels. No thoracic central canal stenosis is seen. Lumbar spine: There is no listhesis. The vertebral bodies are normal in height. There is a minimal superior endplate Schmorl's node at L2. There are mildly displaced right transverse process fractures at L1-L2 and L3, the latter which appear to have stranding callus formation which favors a subacute etiology. There is no significant central canal stenosis. IMPRESSION: 1. Limited exam due to bilateral arm positioning over the chest wall. 2. Subacute appearing anterior lateral right third, fourth, fifth, sixth, seventh and eighth rib fractures and right L1, L2 and L3 transverse process fractures. Correlate with the date of reported injury. 3. Hepatomegaly and hepatic steatosis. 4. Mild degenerative change involving the thoracic and lumbar spine. There is no severe foraminal or central canal stenosis. Electronically signed by: Linda Solomon MD (01/24/2020 1:41 PM) [facility]
[2020-01-24] MEDS ORDERED: MORPHINE SULFATE 4 MG/ML VIAL. IV ONE (15:15)
[2020-01-24] MEDS ORDERED: ONDANSETRON PF 4 MG/2 ML VIAL. IV ONE (15:15)
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
--- NOTE | 2020-01-24 17:01 | NUR ---
pt arrived to 530 accompanied by ER staff and 2 [employer] staff. pt in handcuffs. moved from cart to bed using slide sheet. pt oriented to room and call light. Dr. Lawson in to see patient.
[2020-01-24 19:00] VITALS: BP 125/74
[2020-01-24] MEDS: MORPHINE SULFATE 2 MG/ML VIAL. IV PRN ×2 (19:37→22:24)
[2020-01-24 23:00] VITALS: BP 128/82
[2020-01-25] MEDS: MORPHINE SULFATE 2 MG/ML VIAL. IV PRN ×3 (02:42→21:46)
[2020-01-25 03:00] VITALS: BP 120/72
[2020-01-25 07:00] VITALS: BP 102/53
[2020-01-25 11:00] VITALS: BP 138/75
--- NOTE | 2020-01-25 11:30 | NUR ---
PATIENT GIVEN INCENTIVE SPIROMETRY COMPONENT, INSTRUCTIONS GIVEN ON HOW TO USE AND HOW OFTEN TO USE, WILL MONITOR.
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
[2020-01-25 14:57] VITALS: BP 142/78
[2020-01-25] MEDS: HYDROcodone/APAP 10/325 1 TAB TABLET PO PRN ×2 (18:17→23:41)
[2020-01-25 19:00] VITALS: BP 128/69
[2020-01-25 23:00] VITALS: BP 105/71
[2020-01-26 03:00] VITALS: BP 108/76
[2020-01-26] MEDS: HYDROcodone/APAP 10/325 1 TAB TABLET PO PRN ×3 (05:34→15:25)
[2020-01-26 07:00] VITALS: BP 140/85
--- NOTE | 2020-01-26 09:42 | NUR ---
SW following. Spoke with RN and reviewed chart. Pt to discharge today. Pt will transfer to senior living upon discharge. No SW needs.
[2020-01-26 11:00] VITALS: BP 130/76
--- NOTE | 2020-01-26 14:36 | DISCH ---
DISCHARGE INSTRUCTIONS Condition on Discharge Condition on Discharge: Stable (If pain is controlled for multiple rib fractures) Activity After Discharge Activity Instructions for Disc: Activity as tolerated Exercise Instruction after Dis: Walk 30 min, 3 x per week Driving Instructions after Dis: Do not drive Weight Bearing Status after Di: No restrictions Diet after Discharge Diet after Discharge: Regular Checks after Discharge Checks after discharge: Check blood press - daily, Check your Temp as needed DC Comment: Patient will need to do incentive spirometry every 1 hour Follow-Up Follow up with: PCP ARCADIO ANDERSEN MD Jan 26, 2020 14:36
--- NOTE | 2020-01-26 16:49 | NUR ---
Discharge Note: [facility] Discharge instructions and discharge home medications reviewed with Other facility and a copy given. All questions have been answered and understanding verbalized. The following instructions and handouts were given: Patient given discharge instructions. all information sent to the [facility] RN. Discontinued lines and drains: Iv removed per protocol. Patient discharged to prison, transported by sherrif and police lieutenant.
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
== END 2020-01-26 16:15 | DRG 184 ==
LOC: ER 11:15 → 5 NORTH 14:58 → EEVIPCON 14:58
PROVIDERS: ADMIT Internal Medicine; ATTEND Internal Medicine
DX: S22.41XA Multiple fractures of ribs, right side, initial encounter for closed fracture (principal); S32.019A Unspecified fracture of first lumbar vertebra, initial encounter for closed fracture; S32.029A Unspecified fracture of second lumbar vertebra, initial encounter for closed fracture; S32.039A Unspecified fracture of third lumbar vertebra, initial encounter for closed fracture; Z68.41 Body mass index [BMI] 40.0-44.9, adult; E66.01 Morbid (severe) obesity due to excess calories; E11.9 Type 2 diabetes mellitus without complications; W17.89XA Other fall from one level to another, initial encounter; I10 Essential (primary) hypertension; M10.9 Gout, unspecified; Y93.02 Activity, running; Z82.49 Family history of ischemic heart disease and other diseases of the circulatory system; Z86.73 Personal history of transient ischemic attack (TIA), and cerebral infarction without residual deficits; Z87.442 Personal history of urinary calculi; Z87.891 Personal history of nicotine dependence; Y92.89 Other specified places as the place of occurrence of the external cause; Y99.8 Other external cause status; Z79.899 Other long term (current) drug therapy; Z88.2 Allergy status to sulfonamides; Z88.8 Allergy status to other drugs, medicaments and biological substances; Z88.1 Allergy status to other antibiotic agents; Z88.0 Allergy status to penicillin; Z91.013 Allergy to seafood; Z81.3 Family history of other psychoactive substance abuse and dependence
CPT/HCPCS: 36415; 70450; 71260; 72125; 74177; 80053; 82962; 85025; 93005; 96361; 96372; 96374; 96375; 99285; G0480; J1885; J2270; J2360; J2405; J7030; Q9967; 97530-GP; G0378

== ENCOUNTER 2020-04-15 23:50 | Emergency (ER) | payer SELFPAY ==
[~2020-04-15] VITALS: Ht 175.3 cm; Wt 122.7 kg
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
[2020-04-16] MEDS ORDERED: ACETAMINOPHEN 500 MG TABLET PO ONE (00:15)
[2020-04-16] MEDS ORDERED: IV NORMAL SALINE 1000ML BAG 1,000 ML IV ONE (00:30)
[2020-04-16 01:16] LABS: CALCIUM 8.5 mg/dL (8.5-10.1); CREATININE 1.1 mg/dL (0.7-1.3); GFR 72.7; POTASSIUM 3.1 mmol/L (3.5-5.1)
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
[2020-04-16] MEDS ORDERED: IOHEXOL 300 MG/ML 100ML VIAL. IV ONE (01:45)
[2020-04-16] MEDS ORDERED: CONTRAST GIVEN. MC PRN (01:45)
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
[2020-04-16] MEDS ORDERED: IBUP-1007 PO (02:39)
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
[2020-04-16 02:55] VITALS: BP 122/62
--- NOTE | 2020-04-17 08:48 | EKG ---
[facility] [address] [place] [address] Test Date: 2020-04-16 Test Time: 00:06:52 Pat Name: GLEN ONTIVEROS Department: Room: Gender: M Sales Supervisor: : 1975 Requested By: SHERRELL BOOKER Order Number: [id number] Reading MD: Measurements Intervals [place] Rate: 121 P: 223 TX: 98 QRS: 9 QRSD: 80 T: 18 QT: 360 QTc: 514 Interpretive Statements SUPRAVENTRICULAR RHYTHM NO SPECIFIC ECG ABNORMALITIES RI6.02 No previous ECG available for comparison
== END 2020-04-16 03:23 | disposition home or self-care (01) ==
LOC: ER 23:50
DX: R10.9 Unspecified abdominal pain (principal); M54.89 Other dorsalgia; G89.29 Other chronic pain; K76.0 Fatty (change of) liver, not elsewhere classified; E11.9 Type 2 diabetes mellitus without complications; I10 Essential (primary) hypertension; Z87.891 Personal history of nicotine dependence; Z86.73 Personal history of transient ischemic attack (TIA), and cerebral infarction without residual deficits; Z88.0 Allergy status to penicillin; Z88.1 Allergy status to other antibiotic agents; Z88.2 Allergy status to sulfonamides; Z91.013 Allergy to seafood
CPT/HCPCS: 36415; 70450; 71260; 72125; 73080; 74177; 80048; 93005; 96361; 96374; 99285; J2060; J7030; Q9967

== ENCOUNTER 2020-04-18 00:15 | Observation (INO) | payer SELFPAY ==
[~2020-04-18] VITALS: Ht 175.3 cm; Wt 120.9 kg
[2020-04-18 01:05] LABS: BASO % 1 % (0-3); EOS # 0.3 x10^3/uL (0.0-0.7); EOS % 5 % (0-3); HEMATOCRIT 39.1 % (39.0-53.0); HEMOGLOBIN 13.4 g/dL (13.0-17.5); LYMPH # 1.6 x10^3/uL (1.0-4.8); LYMPH % 27 % (24-48); MEAN CORPUSCULAR HEMOGLOBIN 30 pg (25-35); MEAN CORPUSCULAR HGB CONC 34 g/dL (31-37); MEAN CORPUSCULAR VOLUME 89 fL (79-100); MONO # 0.6 x10^3/uL (0.0-1.1); MONO % 10 % (0-9); NEUT # 3.4 x10^3/uL (1.8-7.7); NEUT % 58 % (31-73); PLATELET COUNT 194 x10^3/uL (140-400); RED BLOOD COUNT 4.41 x10^6/uL (4.30-5.70); RED CELL DISTRIBUTION WIDTH 14.4 % (11.5-14.5); WHITE BLOOD COUNT 5.8 x10^3/uL (4.0-11.0)
[2020-04-18 01:12] LABS: CALCIUM 8.6 mg/dL (8.5-10.1); GFR 81.2; POTASSIUM 3.4 mmol/L (3.5-5.1)
[2020-04-18 01:18] LABS: ALBUMIN 3.2 g/dL (3.4-5.0); ALBUMIN/GLOBULIN RATIO 0.9 (1.0-1.7); TOTAL BILIRUBIN 0.2 mg/dL (0.2-1.0); TOTAL PROTEIN 6.8 g/dL (6.4-8.2)
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
[2020-04-18 02:00] LABS: BILIRUBIN,URINE NEGATIVE (NEG); CLARITY,URINE CLOUDY; COLOR,URINE YELLOW; NITRITE,URINE NEGATIVE (NEG); PROTEIN,URINE NEGATIVE (NEG-TRACE)
[2020-04-18] MEDS ORDERED: KETOROLAC 30 MG/ML VIAL. IVP ONE (02:00)
[2020-04-18] MEDS ORDERED: CLINDAMYCIN 600MG PREMIX 50 ML IV ONE (02:00)
[2020-04-18 02:08] LABS: BACTERIA,URINE 0 /HPF (0-FEW); RBC,URINE RARE /HPF (0-2); WBC,URINE RARE /HPF (0-4)
--- NOTE | 2020-04-18 02:45 | ED.ADGEN ---
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 Patient states that this is started over the last few days and now is having a difficult time walking. He does not believe he is having fevers. Is never had anything like this before. He denies any injuries. He feels like his right leg is significantly worse. He also had an episode of rectal bleeding today. Denies any further bleeding. He has never had anything like this previously. Review of Systems: Review of Systems: Complete ROS is negative unless otherwise documented in HPI Current Medications: Current Medications Medications (Trade) Dose Ordered Sig/Kim Start Time Stop Time Status Last Admin Dose Admin Clindamycin Phosphate 50 ml @ 100 mls/hr 1X ONCE 04/18/20 02:00 04/18/20 02:29 DC 04/18/20 02:02 100 MLS/HR Ketorolac Tromethamine (Toradol 30mg Vial) 30 mg 1X ONCE 04/18/20 02:00 04/18/20 02:01 DC 04/18/20 02:02 30 MG Allergies: Allergies: Allergies Coded Allergies Type Severity Reaction Last Updated Verified Cephalexin Monohydrate Allergy Intermediate 10/23/18 Yes Fish Containing Products Allergy Intermediate 10/23/18 Yes Penicillins Allergy Intermediate 10/23/18 Yes amoxicillin Allergy Intermediate 10/23/18 Yes sulfamethoxazole Allergy Intermediate HANDS SWELL 10/23/18 Yes trimethoprim Allergy Intermediate HANDS SWELL 10/23/18 Yes Physical Exam: PE: General: Awake, alert, NAD. Well Nourished, well hydrated. Cooperative HEENT: Atraumatic, EOMI, PERRL, airway patent, moist oral mucosa Neck: Supple, trachea midline Respiratory: CTA bilaterally, normal effort, no wheezing/crackles CV: RRR, no murmur, cap refill <2 GI: Soft, nondistended, nontender, no masses MSK: No obvious deformities Skin: Warm, dry. Bilateral feet: Plantar surface with erythema and swelling, no wounds noted, diffuse tenderness. Right ankle: 2+ pitting edema. DP pulses 2+ bilaterally Neuro: A&O x3, speech NL, sensory and motor grossly intact, no focal deficits Psych: Normal affect, normal mood, not suicidal or homicidal Current Patient Data: Labs: Laboratory Tests Test 04/18/20 00:55 04/18/20 01:50 White Blood Count 5.8 x10^3/uL (4.0-11.0) Red Blood Count 4.41 x10^6/uL (4.30-5.70) Hemoglobin 13.4 g/dL (13.0-17.5) Hematocrit 39.1 % (39.0-53.0) Mean Corpuscular Volume 89 fL (79-100) Mean Corpuscular Hemoglobin 30 pg (25-35) Mean Corpuscular Hemoglobin Concent 34 g/dL (31-37) Red Cell Distribution Width 14.4 % (11.5-14.5) Platelet Count 194 x10^3/uL (140-400) Neutrophils (%) (Auto) 58 % (31-73) Lymphocytes (%) (Auto) 27 % (24-48) Monocytes (%) (Auto) 10 % (0-9) H Eosinophils (%) (Auto) 5 % (0-3) H Basophils (%) (Auto) 1 % (0-3) Neutrophils # (Auto) 3.4 x10^3/uL (1.8-7.7) Lymphocytes # (Auto) 1.6 x10^3/uL (1.0-4.8) Monocytes # (Auto) 0.6 x10^3/uL (0.0-1.1) Eosinophils # (Auto) 0.3 x10^3/uL (0.0-0.7) Basophils # (Auto) 0.0 x10^3/uL (0.0-0.2) Sodium Level 139 mmol/L (136-145) Potassium Level 3.4 mmol/L (3.5-5.1) L Chloride Level 105 mmol/L (98-107) Carbon Dioxide Level 30 mmol/L (21-32) Anion Gap 4 (6-14) L Blood Urea Nitrogen 10 mg/dL (8-26) Creatinine 1.0 mg/dL (0.7-1.3) Estimated GFR (Cockcroft-Gault) 81.2 BUN/Creatinine Ratio 10 (6-20) Glucose Level 114 mg/dL (70-99) H Calcium Level 8.6 mg/dL (8.5-10.1) Total Bilirubin 0.2 mg/dL (0.2-1.0) Aspartate Amino Transferase (AST) 37 U/L (15-37) Alanine Aminotransferase (ALT) 46 U/L (16-63) Alkaline Phosphatase 113 U/L (46-116) ZE-Mks-R-Type Natriuretic Peptide 36 pg/mL (0-124) Total Protein 6.8 g/dL (6.4-8.2) Albumin 3.2 g/dL (3.4-5.0) L Albumin/Globulin Ratio 0.9 (1.0-1.7) L Urine Collection Type Unknown Urine Color Yellow Urine Clarity Cloudy Urine pH 6.0 (<5.0-8.0) Urine Specific [place] 1.015 (1.000-1.030) Urine Protein Negative mg/dL (NEG-TRACE) Urine Glucose (UA) Negative mg/dL (NEG) Urine Ketones (Stick) Negative mg/dL (NEG) Urine Blood Negative (NEG) Urine Nitrite Negative (NEG) Urine Bilirubin Negative (NEG) Urine Urobilinogen Dipstick 1.0 mg/dL (0.2 mg/dL) Urine Leukocyte Esterase Negative (NEG) Urine RBC Rare /HPF (0-2) Urine WBC Rare /HPF (0-4) Urine Squamous Epithelial Cells Occ /LPF Urine Bacteria 0 /HPF (0-FEW) Urine Mucus Mod /LPF Laboratory Tests 04/18/20 00:55 Laboratory Tests 04/18/20 00:55 Vital Signs: Vital Signs Date Time Temp Pulse Resp B/P (MAP) Pulse Ox O2 Delivery O2 Flow Rate FiO2 04/18/20 02:15 82 18 104/53 (70) 95 Room Air 04/18/20 00:27 98.2 98.2 EKG: EKG: [] Heart Score: Risk Factors: Risk Factors: DM, Current or recent (<one month) smoker, HTN, HLP, family hi story of CAD, obesity. Risk Scores: Score 0 - 3: 2.5% MACE over next 6 weeks - Discharge Home Score 4 - 6: 20.3% MACE over next 6 weeks - Admit for Clinical Observation Score 7 - 10: 72.7% MACE over next 6 weeks - Early Invasive Strategies Radiology/Procedures: Radiology/Procedures: [] Course & Med Decision Making: Course & Med Decision Making Pertinent Labs and Imaging studies reviewed. (See chart for details) Patient is a 44-year-old male who presents to the emergency room complaining of swelling in his lower legs as well as pain and erythema in his feet. Patient does not have any itching in his feet or scaly lesions that would be suggestive of fungal infection. Is more likely this is related to cellulitis. Ultrasound will be done of the right leg to rule out DVT given the swelling and worsening pain in that leg. Patient will be given antibiotics here in the emergency room. Work-up was ordered and normal. Patient will be admitted for cellulitis. Dragon Disclaimer: Dragdov Disclaimer: This electronic medical record was generated, in whole or in part, using a voice recognition dictation system. Departure Departure Impression: Primary Impression: Cellulitis Additional Impression: Rectal bleeding Disposition: 09 ADMITTED INPT THIS HOSP Condition: STABLE Referrals: NO PCP (PCP) Problem Qualifiers EVE CEBALLOS MD Apr 18, 2020 02:45
[2020-04-18 04:00] VITALS: BP 116/63
--- NOTE | 2020-04-18 04:15 | NUR ---
The patient, GLEN ONTIVEROS, 44 y/o, M admitted by SUSI BOYD MD, was given written information regarding hospital policies, unit procedures and contact persons. RN received report from Jolynn CORREIA in the ED at 0349, patient was then transported from the ED to room 420 via gurney at 0400. RN performed a head to toe assessment at that time, VSS, afebrile, and pain rated a 4/10 at that time. Bed is in lowest locked position and call light is within reach. Valuables were checked and left in the room with the patient. RN will continue to monitor the patient closely.
--- NOTE | 2020-04-18 06:14 | RAD ---
Right Lower Extremity Venous Doppler Ultrasound History: Reason: swelling, pain / Spl. Instructions: / History: Comparison: None Procedure: Color flow, duplex, spectral analysis and 2D images are obtained with and without compression in the area of the common femoral vein, superficial femoral vein - femoral vein junction, main femoral vein (superficial femoral vein) and popliteal vein. Veins of the proximal calf are also imaged. Findings: There is normal duplex flow, color flow and compressibility of all visualized vein segments. No evidence of deep venous thrombus is present. There is soft tissue edema. There is a few mildly enlarged lymph nodes in the right groin. Impression: No evidence of DVT. Mild lymphadenopathy likely reactive. Electronically signed by: Hayden Infante III, MD (04/18/2020 6:11 AM) [facility]
[2020-04-18 07:00] VITALS: BP 92/48
[2020-04-18] MEDS: INSULIN LISPRO 300 UNITS/3 ML VIAL. SQ SCH ×2 (08:00→12:00)
--- NOTE | 2020-04-18 09:02 | SSS ---
ADMIT DATE: 04/18/2020 CHIEF COMPLAINT: Foot pain and rectal bleeding. HISTORY OF PRESENT ILLNESS: The patient is a pleasant 44-year-old male who states he just got out of penitentiary. He uses methamphetamine. Now, he has got foot pain and some rectal bleeding. His hemoglobin was actually within normal limits at 13.4. Potassium was a little low at 3.4. His feet have some slight irritation, but nothing major. Basically was admitted overnight for observation. This morning, I saw him and examined him, he is doing well. I hope to probably discharge this afternoon. PAST MEDICAL HISTORY: Cocaine abuse, marijuana use, methamphetamine abuse, diabetes, hypertension, seizures, TIA, traumatic brain injury, gout, hidradenitis suppurativa, kidney stone, stent placement to the ureter. ALLERGIES: CEPHALEXIN, FISH, PENICILLIN, AMOXICILLIN, SULFA AND TRIMETHOPRIM. FAMILY HISTORY: Diabetes. SOCIAL HISTORY: He just got out of penitentiary. He does smoke every day, uses cocaine, marijuana, and meth. MEDICATIONS: Reviewed, please refer to the MRAD. REVIEW OF SYSTEMS: GENERAL: No history of weight change, weakness or fevers. SKIN: No bruising, hair changes or rashes. EYES: No blurred, double or loss of vision. NOSE AND THROAT: No history of nosebleeds, hoarseness or sore throat. HEART: No history of palpitations, chest pain or shortness of breath on exertion. LUNGS: Denies cough, hemoptysis, wheezing or shortness of breath. GASTROINTESTINAL: He complains of rectal bleeding. GENITOURINARY: No history of frequency, urgency, hesitancy or nocturia. NEUROLOGIC: Denies history of numbness, tingling, tremor or weakness. PSYCHIATRIC: No history of panic, anxiety or depression. ENDOCRINE: No history of heat or cold intolerance, polyuria or polydipsia. EXTREMITIES: He complains of foot pain. PHYSICAL EXAMINATION: VITALS: Within normal limits and are stable. GENERAL: No apparent distress. Alert and oriented. HEENT: Normal cephalic atraumatic, external auditory canals are patent EYES: Extraocular muscles are intact, pupils are equally round and reactive to light and accommodation MUSCULOSKELETAL: Well developed, well nourished, good range of motion ENDOCRINE: No thyromegaly was palpated LYMPHATICS: No cervical chain or axillary nodes were noted HEMATOPOIETIC: No bruising NECK: Supple, no JVD, no thyromegaly was noted. LUNGS: Clear to auscultation in all lung grant without rhonchi or wheezing. HEART: RRR, S1, S2 present. Peripheral pulses intact, no obvious murmurs were noted. ABDOMEN: Soft, nontender. Positive bowel sounds no organomegaly, normal bowel sounds. EXTREMITIES: Without any cyanosis, clubbing, or edema. Pedal pulses intact, Homans sign is negative. NEUROLOGIC: Normal speech, normal tone. A and O x 3, moves all extremities, no obvious focal deficits. PSYCHIATRIC: Normal affect, normal mood. Stable. SKIN: No ulcerations or rashes, good skin turgor, no jaundice. VASCULAR: Good capillary refill, neurovascular bundle appears to be intact. LABORATORY DATA: Hemoglobin is 13.4. ASSESSMENT AND PLAN: Resolving foot pain, subjective rectal bleeding, but his hemoglobin is normal. The patient was admitted overnight for observation. This morning, he is doing well. We will go ahead and discharge. DISPOSITION: Home. ACTIVITY: As tolerated. DIET: Low sodium. MEDICATIONS: Please see MRAD. TOTAL TIME: 32 minutes. NORYL Tank ALCALA DO DR: STEVE/volodymyr JOB#: [id number] / [id number]
--- NOTE | 2020-04-18 10:21 | NUR ---
SW following. Discussed with RN, pt from home, room air, clear liquid diet. Discharge order for home with self care. RN advised no SW needs. SW will continue to follow, should any discharge needs arise.
--- NOTE | 2020-04-18 13:19 | NUR ---
Discharge instructions reviewed with patient, verbalized understanding. 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
== END 2020-04-18 13:45 | disposition home or self-care (01) ==
LOC: ER 00:15 → 4 NORTH 02:10
PROVIDERS: ADMIT Family Medicine; ATTEND Family Medicine
DX: L03.115 Cellulitis of right lower limb (principal); K62.5 Hemorrhage of anus and rectum; F14.10 Cocaine abuse, uncomplicated; F12.90 Cannabis use, unspecified, uncomplicated; F15.10 Other stimulant abuse, uncomplicated; I10 Essential (primary) hypertension; M10.9 Gout, unspecified; F17.200 Nicotine dependence, unspecified, uncomplicated; E11.9 Type 2 diabetes mellitus without complications; R56.9 Unspecified convulsions; L73.2 Hidradenitis suppurativa; Z86.73 Personal history of transient ischemic attack (TIA), and cerebral infarction without residual deficits; Z87.442 Personal history of urinary calculi; Z98.890 Other specified postprocedural states
CPT/HCPCS: 36415; 71045; 80053; 81001; 83880; 85025; 93971; 96365; 96375; 99285; 99406; G0378; J1815; J1885; J3490; G0379

== ENCOUNTER 2020-09-25 20:27 | Inpatient (IN) | payer SELFPAY ==
[~2020-09-25] VITALS: Ht 175.3 cm; Wt 144.0 kg
[~2020-09-25 20:27] MED LIST changes: -CLIN300C8 PO; +CLIN300C9 PO
[2020-09-25 20:51] LABS: BASO # 0.1 x10^3/uL (0.0-0.2); BASO % 1 % (0-3); EOS # 0.2 x10^3/uL (0.0-0.7); EOS % 2 % (0-3); HEMATOCRIT 44.5 % (39.0-53.0); HEMOGLOBIN 15.2 g/dL (13.0-17.5); LYMPH # 1.1 x10^3/uL (1.0-4.8); LYMPH % 12 % (24-48); MEAN CORPUSCULAR HEMOGLOBIN 30 pg (25-35); MEAN CORPUSCULAR HGB CONC 34 g/dL (31-37); MEAN CORPUSCULAR VOLUME 88 fL (79-100); MONO # 0.6 x10^3/uL (0.0-1.1); MONO % 6 % (0-9); NEUT # 7.5 x10^3/uL (1.8-7.7); NEUT % 79 % (31-73); PLATELET COUNT 185 x10^3/uL (140-400); RED BLOOD COUNT 5.07 x10^6/uL (4.30-5.70); WHITE BLOOD COUNT 9.4 x10^3/uL (4.0-11.0)
[2020-09-25] MEDS ORDERED: IV NORMAL SALINE 1000ML BAG 1,000 ML IV ONE (21:00)
[2020-09-25 21:02] LABS: CALCIUM 8.4 mg/dL (8.5-10.1); GFR 81.2; POTASSIUM 3.8 mmol/L (3.5-5.1)
[2020-09-25 21:09] LABS: ALBUMIN 3.5 g/dL (3.4-5.0); ALBUMIN/GLOBULIN RATIO 0.8 (1.0-1.7); TOTAL BILIRUBIN 0.7 mg/dL (0.2-1.0); TOTAL PROTEIN 7.8 g/dL (6.4-8.2)
[2020-09-25] MEDS ORDERED: fentaNYL PF VIAL 100 MCG/2 ML VIAL IVP ONE ×2 (21:30→22:30)
[2020-09-25] MEDS ORDERED: ONDANSETRON PF 4 MG/2 ML VIAL. IVP ONE (21:30)
[2020-09-25] MEDS ORDERED: CONTRAST GIVEN. MC PRN (21:30)
[2020-09-25] MEDS ORDERED: IOHEXOL 300 MG/ML 100ML VIAL. IV ONE (21:30)
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
[2020-09-26] MEDS ORDERED: ONDANSETRON PF 4 MG/2 ML VIAL. IV PRN ×2 (00:15→08:30)
[2020-09-26] MEDS: MORPHINE SULFATE 4 MG/ML VIAL. IV PRN ×5 (00:21→20:28)
[2020-09-26] MEDS: IV NORMAL SALINE 1000ML BAG 1,000 ML IV SCH ×3 (00:21→20:29)
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
[2020-09-26 03:01] VITALS: BP 124/69
[2020-09-26 07:00] VITALS: BP 109/66
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
--- NOTE | 2020-09-26 08:39 | NUR ---
Pt admitted 0330 alert and verbalized excruciating pain, once patient transfered into bed and settled in room, went to get pain meds to return to room with and pt fell asleep snoring, tried to awake but failed, will continue to monitor until pt awakes to further complete admission. Tele monitor placed for close monitoring.
[2020-09-26 11:00] VITALS: BP 143/74
[2020-09-26] MEDS ORDERED: DIPH,PERTUSS(ACELL),TET VAC/PF 0.5 ML SYRINGE. VAX IM ONE (12:00)
[2020-09-26] MEDS: LIDOCAINE (700MG/PATCH) PATCH. TD SCH (12:46)
[2020-09-26] MEDS: KETOROLAC 30 MG/ML VIAL. IV PRN ×2 (12:47→20:29)
--- NOTE | 2020-09-26 13:32 | NUR ---
SW following. Discussed with RN, pt from home, 2L (does not use oxygen at home), regular diet. Surgery consulted. Per RN pt will likely discharge home when pain better controlled and pt can get up and walk around. Med Assist following for self pay status. SW will continue to follow.
[2020-09-26 15:00] VITALS: BP 140/74
[2020-09-26] MEDS: CYCLOBENZAPRINE 10 MG TABLET. PO PRN (17:17)
--- NOTE | 2020-09-26 18:20 | PDOC2 ---
CONSULT Date of Consult Date of Consult DATE: 09/26/20 TIME: 18:14 Reason for Consult Reason for Consult: crush injury Referring Physician Referring Physician: Dr. Smith Identification/Chief Complaint Chief Complaint back pain Source Source: Chart review, Patient History of Present Illness Reason for Visit: 44 yo M s/p crush injury between two trucks. Pt seen in hospital room and c/o back pain. Able to move all extremities and good sensation. Denies abd pain and is tolerating diet. Past Medical History Cardiovascular: CAD, HTN CENTRAL NERVOUS SYSTEM: Seizure, TIA, Other (brain injury) Endocrine: Diabetes Past Surgical History Past Surgical History: Other (kidney stone removal) Family History Family History: No Significant Social History 1 pack per day Drugs: Cocaine, Marijuana Current Problem List Problem List Problems Medical Problems: (1) Closed fracture of transverse process of lumbar vertebra Status: Acute (2) Crushed injury, trunk Status: Acute Current Medications Current Medications Current Medications Sodium Chloride 1,000 ml @ 1,000 mls/hr 1X ONCE IV Last administered on 09/25/20at 21:02; Start 09/25/20 at 21:00; Stop 09/25/20 at 21:59; Status DC Fentanyl Citrate (Fentanyl 2ml Vial) 100 mcg 1X ONCE IVP Last administered on 09/25/20at 21:03; Start 09/25/20 at 21:30; Stop 09/25/20 at 21:31; Status DC Ondansetron HCl (Zofran) 4 mg 1X ONCE IVP Last administered on 09/25/20at 21:02; Start 09/25/20 at 21:30; Stop 09/25/20 at 21:31; Status DC Iohexol (Omnipaque 300 Mg/ml) 75 ml 1X ONCE IV Last administered on 09/25/20at 21:53; Start 09/25/20 at 21:30; Stop 09/25/20 at 21:32; Status DC Info (CONTRAST GIVEN -- Rx MONITORING) 1 each PRN DAILY PRN MC SEE COMMENTS; Start 09/25/20 at 21:30; Stop 09/27/20 at 21:29 Fentanyl Citrate (Fentanyl 2ml Vial) 50 mcg 1X ONCE IVP Last administered on 09/25/20at 22:13; Start 09/25/20 at 22:30; Stop 09/25/20 at 22:31; Status DC Ondansetron HCl (Zofran) 4 mg PRN Q8HRS PRN IV NAUSEA/VOMITING 1ST CHOICE; Start 09/26/20 at 00:15; Stop 09/26/20 at 08:29; Status DC Morphine Sulfate (Morphine Sulfate) 4 mg PRN Q2HR PRN IV SEVERE PAIN 7-10 Last administered on 09/26/20at 17:16; Start 09/26/20 at 00:15 Sodium Chloride 1,000 ml @ 125 mls/hr Q8H IV Last administered on 09/26/20at 15:20; Start 09/26/20 at 00:30; Stop 09/27/20 at 00:29 Ondansetron HCl (Zofran) 4 mg PRN Q4HRS PRN IV NAUSEA/VOMITING 1ST CHOICE; Start 09/26/20 at 08:30 Ketorolac Tromethamine (Toradol 30mg Vial) 30 mg PRN Q6HRS PRN IV MILD PAIN / TEMP > 100.3'F Last administered on 09/26/20at 12:47; Start 09/26/20 at 08:30; Stop 10/01/20 at 08:29 Diphtheria/ Tetanus/Acell Pertussis (ADACEL TDap SYRINGE) 0.5 ml ONCE ONCE VAX IM Last administered on 09/26/20at 15:20; Start 09/26/20 at 12:00; Stop 09/26/20 at 12:01; Status DC Lidocaine (Lidoderm) 1 patch DAILY TD Last administered on 09/26/20at 12:46; Start 09/26/20 at 12:00 Cyclobenzaprine HCl (Flexeril) 10 mg PRN Q6HRS PRN PO MUSCLE SPASMS Last administered on 09/26/20at 17:17; Start 09/26/20 at 12:00 Miscellaneous (Lidoderm Patch Removal) 1 ea QHS MC ; Start 09/26/20 at 21:00 Active Scripts Active Ibuprofen 600 Mg Tablet 600 Mg PO PRN Q6HRS PRN take with food or milk Naproxen 500 Mg Tablet 1 Tab PO BID PRN Ibuprofen 600 Mg Tablet 600 Mg PO PRN Q6HRS PRN Reported Dilantin (Phenytoin Sodium Extended) 100 Mg Capsule 100 Mg PO TID Inderal Xl (Propranolol Hcl) 120 Mg Cap.er.24h 120 Mg PO DAILY Allergies Allergies: Coded Allergies: Cephalexin Monohydrate (Verified Allergy, Intermediate, 10/23/18) Fish Containing Products (Verified Allergy, Intermediate, 10/23/18) Penicillins (Verified Allergy, Intermediate, 10/23/18) amoxicillin (Verified Allergy, Intermediate, 10/23/18) sulfamethoxazole (Verified Allergy, Intermediate, HANDS SWELL , 10/23/18) trimethoprim (Verified Allergy, Intermediate, HANDS SWELL , 10/23/18) ROS Musculoskeletal: Yes Other (back pain) Physical Exam General: Alert, Oriented X3, Cooperative, mild distress HEENT: Atraumatic, EOMI Lungs: Normal air movement Abdomen: Soft, No tenderness, Other (obese) Skin: Other (right forearm superficial laceration) Neuro: Normal speech, Strength at 5/5 X4 ext, Sensation intact Psych/Mental Status: Mental status NL, Mood NL Vitals VITALS Vital Signs Date Time Temp Pulse Resp B/P (MAP) Pulse Ox O2 Delivery O2 Flow Rate FiO2 09/26/20 17:16 20 Room Air 09/26/20 15:00 97.5 86 140/74 (96) 95 97.5 09/26/20 11:00 2.0 Labs Labs Laboratory Tests Test 09/25/20 20:40 White Blood Count 9.4 x10^3/uL (4.0-11.0) Red Blood Count 5.07 x10^6/uL (4.30-5.70) Hemoglobin 15.2 g/dL (13.0-17.5) Hematocrit 44.5 % (39.0-53.0) Mean Corpuscular Volume 88 fL (79-100) Mean Corpuscular Hemoglobin 30 pg (25-35) Mean Corpuscular Hemoglobin Concent 34 g/dL (31-37) Red Cell Distribution Width 14.0 % (11.5-14.5) Platelet Count 185 x10^3/uL (140-400) Neutrophils (%) (Auto) 79 % (31-73) Lymphocytes (%) (Auto) 12 % (24-48) Monocytes (%) (Auto) 6 % (0-9) Eosinophils (%) (Auto) 2 % (0-3) Basophils (%) (Auto) 1 % (0-3) Neutrophils # (Auto) 7.5 x10^3/uL (1.8-7.7) Lymphocytes # (Auto) 1.1 x10^3/uL (1.0-4.8) Monocytes # (Auto) 0.6 x10^3/uL (0.0-1.1) Eosinophils # (Auto) 0.2 x10^3/uL (0.0-0.7) Basophils # (Auto) 0.1 x10^3/uL (0.0-0.2) Sodium Level 137 mmol/L (136-145) Potassium Level 3.8 mmol/L (3.5-5.1) Chloride Level 101 mmol/L (98-107) Carbon Dioxide Level 28 mmol/L (21-32) Anion Gap 8 (6-14) Blood Urea Nitrogen 10 mg/dL (8-26) Creatinine 1.0 mg/dL (0.7-1.3) Estimated GFR (Cockcroft-Gault) 81.2 BUN/Creatinine Ratio 10 (6-20) Glucose Level 127 mg/dL (70-99) Calcium Level 8.4 mg/dL (8.5-10.1) Magnesium Level 2.0 mg/dL (1.8-2.4) Total Bilirubin 0.7 mg/dL (0.2-1.0) Aspartate Amino Transf (AST/SGOT) 34 U/L (15-37) Alanine Aminotransferase (ALT/SGPT) 41 U/L (16-63) Alkaline Phosphatase 119 U/L (46-116) Creatine Kinase 314 U/L (39-308) Total Protein 7.8 g/dL (6.4-8.2) Albumin 3.5 g/dL (3.4-5.0) Albumin/Globulin Ratio 0.8 (1.0-1.7) Laboratory Tests Test 09/25/20 20:40 White Blood Count 9.4 x10^3/uL (4.0-11.0) Red Blood Count 5.07 x10^6/uL (4.30-5.70) Hemoglobin 15.2 g/dL (13.0-17.5) Hematocrit 44.5 % (39.0-53.0) Mean Corpuscular Volume 88 fL (79-100) Mean Corpuscular Hemoglobin 30 pg (25-35) Mean Corpuscular Hemoglobin Concent 34 g/dL (31-37) Red Cell Distribution Width 14.0 % (11.5-14.5) Platelet Count 185 x10^3/uL (140-400) Neutrophils (%) (Auto) 79 % (31-73) Lymphocytes (%) (Auto) 12 % (24-48) Monocytes (%) (Auto) 6 % (0-9) Eosinophils (%) (Auto) 2 % (0-3) Basophils (%) (Auto) 1 % (0-3) Neutrophils # (Auto) 7.5 x10^3/uL (1.8-7.7) Lymphocytes # (Auto) 1.1 x10^3/uL (1.0-4.8) Monocytes # (Auto) 0.6 x10^3/uL (0.0-1.1) Eosinophils # (Auto) 0.2 x10^3/uL (0.0-0.7) Basophils # (Auto) 0.1 x10^3/uL (0.0-0.2) Sodium Level 137 mmol/L (136-145) Potassium Level 3.8 mmol/L (3.5-5.1) Chloride Level 101 mmol/L (98-107) Carbon Dioxide Level 28 mmol/L (21-32) Anion Gap 8 (6-14) Blood Urea Nitrogen 10 mg/dL (8-26) Creatinine 1.0 mg/dL (0.7-1.3) Estimated GFR (Cockcroft-Gault) 81.2 BUN/Creatinine Ratio 10 (6-20) Glucose Level 127 mg/dL (70-99) Calcium Level 8.4 mg/dL (8.5-10.1) Magnesium Level 2.0 mg/dL (1.8-2.4) Total Bilirubin 0.7 mg/dL (0.2-1.0) Aspartate Amino Transf (AST/SGOT) 34 U/L (15-37) Alanine Aminotransferase (ALT/SGPT) 41 U/L (16-63) Alkaline Phosphatase 119 U/L (46-116) Creatine Kinase 314 U/L (39-308) Total Protein 7.8 g/dL (6.4-8.2) Albumin 3.5 g/dL (3.4-5.0) Albumin/Globulin Ratio 0.8 (1.0-1.7) Images Images Imaging demonstrates multiple transverse process fractures of back Assessment/Plan Assessment/Plan crush injury pain control agree with IVF hydration, given the risk of crush injury and kidney disease Thanks for consult! ETTA DANIELLE MD Sep 26, 2020 18:20
[2020-09-26 19:00] VITALS: BP 154/88
[2020-09-26] MEDS: PATCH REMOVAL. MC SCH (21:00)
[2020-09-26] MEDS ORDERED: DEXTROSE 50% 25 GM / 50ML DISP.SYRIN. IV PRN (21:00)
[2020-09-26] MEDS: PHENYTOIN SODIUM EXTENDED 100 MG CAPSULE PO SCH (21:30)
--- NOTE | 2020-09-26 22:21 | NUR ---
Patient refused dilantin, says he does not take any home medications and has not had an issues with seizures in years.
[2020-09-26 23:33] VITALS: BP 152/91
[2020-09-27] MEDS: MORPHINE SULFATE 4 MG/ML VIAL. IV PRN ×6 (00:22→20:44)
[2020-09-27] MEDS: IV NORMAL SALINE 1000ML BAG 1,000 ML IV SCH ×3 (00:30→17:59)
[2020-09-27 03:19] VITALS: BP 130/83
[2020-09-27] MEDS: KETOROLAC 30 MG/ML VIAL. IV PRN ×3 (04:16→20:44)
[2020-09-27 07:00] VITALS: BP 153/86
[2020-09-27 07:00] LABS: ALBUMIN/GLOBULIN RATIO 0.8 (1.0-1.7); CALCIUM 8.3 mg/dL (8.5-10.1); CREATININE 0.9 mg/dL (0.7-1.3); GFR 91.7; POTASSIUM 4.1 mmol/L (3.5-5.1); TOTAL BILIRUBIN 0.9 mg/dL (0.2-1.0)
[2020-09-27] MEDS: INSULIN LISPRO 300 UNITS/3 ML VIAL. SQ SCH ×3 (08:00→17:00)
[2020-09-27] MEDS ORDERED: PROPRANOLOL ER 60 MG CAP.SA.24H. PO SCH (09:00)
[2020-09-27] MEDS: PHENYTOIN SODIUM EXTENDED 100 MG CAPSULE PO SCH (09:00)
[2020-09-27] MEDS: LIDOCAINE (700MG/PATCH) PATCH. TD SCH (09:11)
--- NOTE | 2020-09-27 09:46 | PDOC ---
[facility] PROGRESS NOTE Date of Service DOS: DATE: 09/27/20 TIME: 09:45 Chief Complaint Chief Complaint A/P: Crush injury - from truck. No internal bleeding noted, will observe for changes Fractures of the right L2-L5 and left L4 and L5 transverse processes - IV pain control. 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 On 09/24/2020 was working on a pickup truck, when another pickup truck somehow rolled into him, pinned him against another truck. He then fell down, was then pinned down on the ground underneath the truck. He c/o lower back pain, left shoulder pain, left knee pain and bilateral hands pain and notes multiple abrasions on bilateral hands and lower back. No head injury, but does have headache. He denied any abdominal pain, no nausea or vomiting. He has history of head injury in the past. He denied any numbness in his extremities. No loss of bowel or bladder function, no focal weakness. UTD on tetanus vaccine. Labs with CK 314, Cr 1, BUN 10, glucose 127, Na 137,K 3.8, WBC 9.4, Hb 15.2. CT cervical spine negative for abnormality, left knee radiograph with edema, no fracture. CT lumbar spine with fractures of the right L2-L5 and left L4 and L5 transverse processes. No unstable spinal fracture. No concern for chest abdomen or pelvis bleeding. Incidentally hepatic steatosis noted. His pain was severe, unable to ambulate, requiring IV pain medication, admitted for further care for hydration, pain control and trauma surgery consultation. Still having significant pain requiring IV medications. Requiring near max assist for transitions and ambulation. Labs improved no renal failure transaminases trending downward. Vitals/I&O Vitals/I&O: Vital Signs Date Time Temp Pulse Resp B/P (MAP) Pulse Ox O2 Delivery O2 Flow Rate FiO2 09/27/20 09:04 17 Room Air 09/27/20 07:00 88 153/86 (108) 96 09/27/20 04:46 2.0 09/27/20 03:19 98.5 98.5 I & O 09/26/20 09/26/20 09/27/20 15:00 23:00 07:00 Intake Total 1355 ml 120 ml Output Total 950 ml 1450 ml 1150 ml Balance -950 ml -95 ml -1030 ml Physical Exam General: Alert, Oriented X3, Cooperative, severe distress Abdomen: Normal bowel sounds, Soft, No tenderness, No hepatosplenomegaly, No masses Extremities: No clubbing, No cyanosis, No edema, Normal pulses Skin: Other (multiple abrasions on bilateral knees, back, wrists, hands) Labs Labs: Laboratory Tests Test 09/27/20 06:00 09/27/20 08:56 Sodium Level 138 mmol/L (136-145) Potassium Level 4.1 mmol/L (3.5-5.1) Chloride Level 105 mmol/L (98-107) Carbon Dioxide Level 27 mmol/L (21-32) Anion Gap 6 (6-14) Blood Urea Nitrogen 9 mg/dL (8-26) Creatinine 0.9 mg/dL (0.7-1.3) Estimated GFR (Cockcroft-Gault) 91.7 BUN/Creatinine Ratio 10 (6-20) Glucose Level 98 mg/dL (70-99) Calcium Level 8.3 mg/dL (8.5-10.1) Total Bilirubin 0.9 mg/dL (0.2-1.0) Aspartate Amino Transf (AST/SGOT) 28 U/L (15-37) Alanine Aminotransferase (ALT/SGPT) 35 U/L (16-63) Alkaline Phosphatase 101 U/L (46-116) Creatine Kinase 307 U/L (39-308) Total Protein 7.0 g/dL (6.4-8.2) Albumin 3.0 g/dL (3.4-5.0) Albumin/Globulin Ratio 0.8 (1.0-1.7) Glucose (Fingerstick) 130 mg/dL (70-99) Assessment and Plan Assessmemt and Plan Problems Medical Problems: (1) Closed fracture of transverse process of lumbar vertebra Status: Acute (2) Crushed injury, trunk Status: Acute Comment Review of Relevant I have reviewed the following items parker (where applicable) has been applied. Medications: Current Medications Medications (Trade) Dose Ordered Sig/Kim Route PRN Reason Start Time Stop Time Status Last Admin Dose Admin Diphtheria/ Tetanus/Acell Pertussis (ADACEL TDap SYRINGE) 0.5 ml ONCE ONCE VAX IM 09/26/20 12:00 09/26/20 12:01 DC 09/26/20 15:20 Lidocaine (Lidoderm) 1 patch DAILY TD 09/26/20 12:00 09/27/20 09:11 Cyclobenzaprine HCl (Flexeril) 10 mg PRN Q6HRS PRN PO MUSCLE SPASMS 09/26/20 12:00 09/26/20 17:17 Miscellaneous (Lidoderm Patch Removal) 1 ea QHS MC 09/26/20 21:00 09/26/20 21:00 Justifications for Admission Other Justification ISRAEL YEH MD Sep 27, 2020 09:46
[2020-09-27 11:00] VITALS: BP 151/79
[2020-09-27] MEDS: CYCLOBENZAPRINE 10 MG TABLET. PO PRN (11:25)
[2020-09-27] MEDS: POLYETHYLENE GLYCOL 3350 17 GM PACKET. PO SCH ×2 (11:25→20:42)
[2020-09-27] MEDS: PSYLLIUM HUSK (SUGAR FREE) 1 PKT PACKET PO SCH ×2 (11:25→20:42)
[2020-09-27] MEDS: traMADol 50 MG TABLET PO PRN (11:25)
--- NOTE | 2020-09-27 13:25 | PDOC ---
SURGICAL PROGRESS NOTE DATE: 09/27/20 TIME: 13:15 Subjective in chair did not eat much tired denies abdominal pain Vital Signs Vital Signs Date Time Temp Pulse Resp B/P (MAP) Pulse Ox O2 Delivery O2 Flow Rate FiO2 09/27/20 11:25 17 Room Air 09/27/20 11:00 97.3 84 151/79 (103) 92 97.3 09/27/20 04:46 2.0 I&O Intake and Output 09/27/20 07:00 Intake Total 1475 ml Output Total 3550 ml Balance -2075 ml Intake Oral 475 ml IV Total 1000 ml Output Urine Total 3550 ml # Voids 3 General: Cooperative, No acute distress Abdomen: Soft, No tenderness Neuro: Other (moving extremities ) Labs Laboratory Tests Test 09/25/20 20:40 09/27/20 06:00 09/27/20 08:56 09/27/20 11:26 White Blood Count 9.4 x10^3/uL (4.0-11.0) Red Blood Count 5.07 x10^6/uL (4.30-5.70) Hemoglobin 15.2 g/dL (13.0-17.5) Hematocrit 44.5 % (39.0-53.0) Mean Corpuscular Volume 88 fL (79-100) Mean Corpuscular Hemoglobin 30 pg (25-35) Mean Corpuscular Hemoglobin Concent 34 g/dL (31-37) Red Cell Distribution Width 14.0 % (11.5-14.5) Platelet Count 185 x10^3/uL (140-400) Neutrophils (%) (Auto) 79 % (31-73) Lymphocytes (%) (Auto) 12 % (24-48) Monocytes (%) (Auto) 6 % (0-9) Eosinophils (%) (Auto) 2 % (0-3) Basophils (%) (Auto) 1 % (0-3) Neutrophils # (Auto) 7.5 x10^3/uL (1.8-7.7) Lymphocytes # (Auto) 1.1 x10^3/uL (1.0-4.8) Monocytes # (Auto) 0.6 x10^3/uL (0.0-1.1) Eosinophils # (Auto) 0.2 x10^3/uL (0.0-0.7) Basophils # (Auto) 0.1 x10^3/uL (0.0-0.2) Sodium Level 137 mmol/L (136-145) 138 mmol/L (136-145) Potassium Level 3.8 mmol/L (3.5-5.1) 4.1 mmol/L (3.5-5.1) Chloride Level 101 mmol/L (98-107) 105 mmol/L (98-107) Carbon Dioxide Level 28 mmol/L (21-32) 27 mmol/L (21-32) Anion Gap 8 (6-14) 6 (6-14) Blood Urea Nitrogen 10 mg/dL (8-26) 9 mg/dL (8-26) Creatinine 1.0 mg/dL (0.7-1.3) 0.9 mg/dL (0.7-1.3) Estimated GFR (Cockcroft-Gault) 81.2 91.7 BUN/Creatinine Ratio 10 (6-20) 10 (6-20) Glucose Level 127 mg/dL (70-99) 98 mg/dL (70-99) Calcium Level 8.4 mg/dL (8.5-10.1) 8.3 mg/dL (8.5-10.1) Magnesium Level 2.0 mg/dL (1.8-2.4) Total Bilirubin 0.7 mg/dL (0.2-1.0) 0.9 mg/dL (0.2-1.0) Aspartate Amino Transf (AST/SGOT) 34 U/L (15-37) 28 U/L (15-37) Alanine Aminotransferase (ALT/SGPT) 41 U/L (16-63) 35 U/L (16-63) Alkaline Phosphatase 119 U/L (46-116) 101 U/L (46-116) Creatine Kinase 314 U/L (39-308) 307 U/L (39-308) Total Protein 7.8 g/dL (6.4-8.2) 7.0 g/dL (6.4-8.2) Albumin 3.5 g/dL (3.4-5.0) 3.0 g/dL (3.4-5.0) Albumin/Globulin Ratio 0.8 (1.0-1.7) 0.8 (1.0-1.7) Glucose (Fingerstick) 130 mg/dL (70-99) 108 mg/dL (70-99) Laboratory Tests Test 09/27/20 06:00 09/27/20 08:56 09/27/20 11:26 Sodium Level 138 mmol/L (136-145) Potassium Level 4.1 mmol/L (3.5-5.1) Chloride Level 105 mmol/L (98-107) Carbon Dioxide Level 27 mmol/L (21-32) Anion Gap 6 (6-14) Blood Urea Nitrogen 9 mg/dL (8-26) Creatinine 0.9 mg/dL (0.7-1.3) Estimated GFR (Cockcroft-Gault) 91.7 BUN/Creatinine Ratio 10 (6-20) Glucose Level 98 mg/dL (70-99) Calcium Level 8.3 mg/dL (8.5-10.1) Total Bilirubin 0.9 mg/dL (0.2-1.0) Aspartate Amino Transf (AST/SGOT) 28 U/L (15-37) Alanine Aminotransferase (ALT/SGPT) 35 U/L (16-63) Alkaline Phosphatase 101 U/L (46-116) Creatine Kinase 307 U/L (39-308) Total Protein 7.0 g/dL (6.4-8.2) Albumin 3.0 g/dL (3.4-5.0) Albumin/Globulin Ratio 0.8 (1.0-1.7) Glucose (Fingerstick) 130 mg/dL (70-99) 108 mg/dL (70-99) Problem List Problems Medical Problems: (1) Closed fracture of transverse process of lumbar vertebra Status: Acute (2) Crushed injury, trunk Status: Acute Assessment/Plan supportive care no surgical indications Justicifation of Admission Dx: Justifications for Admission: Justification of Admission Dx: No Fracture: Fracture CARA LOCK APRN Sep 27, 2020 13:25
[2020-09-27 15:00] VITALS: BP 153/85
[2020-09-27 19:00] VITALS: BP 157/82
[2020-09-27] MEDS: PATCH REMOVAL. MC SCH (21:00)
[2020-09-27 23:00] VITALS: BP 154/94
[2020-09-28] MEDS: MORPHINE SULFATE 4 MG/ML VIAL. IV PRN ×3 (02:28→09:59)
[2020-09-28 03:00] VITALS: BP 179/108
[2020-09-28] MEDS: KETOROLAC 30 MG/ML VIAL. IV PRN ×2 (04:37→09:58)
[2020-09-28 07:00] VITALS: BP 142/103
[2020-09-28] MEDS: INSULIN LISPRO 300 UNITS/3 ML VIAL. SQ SCH ×2 (08:00→12:00)
[2020-09-28] MEDS: POLYETHYLENE GLYCOL 3350 17 GM PACKET. PO SCH (09:57)
[2020-09-28] MEDS: PSYLLIUM HUSK (SUGAR FREE) 1 PKT PACKET PO SCH (09:57)
[2020-09-28] MEDS: LIDOCAINE (700MG/PATCH) PATCH. TD SCH (09:59)
[2020-09-28 11:00] VITALS: BP 161/91
--- NOTE | 2020-09-28 11:40 | NUR ---
SW following. Discussed with RN, pt from home, as needed o2, regular diet. Pt can discharge home when moving around and pain tolerable. Med Assist following for self pay status. SW will continue to follow.
[2020-09-28] MEDS ORDERED: CYCL10TA2 PO (12:15)
[2020-09-28] MEDS ORDERED: OXYC1TAB15 PO (12:15)
--- NOTE | 2020-09-28 12:20 | PDOC3 ---
Discharge Summary Visit Information Date of Admission: Sep 26, 2020 Date of Discharge: Sep 28, 2020 Admitting Diagnosis: L2, L5 Transverse process fractures Final Diagnosis Problems Medical Problems: (1) Closed fracture of transverse process of lumbar vertebra Status: Acute (2) Crushed injury, trunk Status: Acute Brief Hospital Course Allergies Allergies Coded Allergies Type Severity Reaction Last Updated Verified Cephalexin Monohydrate Allergy Intermediate 10/23/18 Yes Fish Containing Products Allergy Intermediate 10/23/18 Yes Penicillins Allergy Intermediate 10/23/18 Yes amoxicillin Allergy Intermediate 10/23/18 Yes sulfamethoxazole Allergy Intermediate HANDS SWELL 10/23/18 Yes trimethoprim Allergy Intermediate HANDS SWELL 10/23/18 Yes Vital Signs Vital Signs Date Time Temp Pulse Resp B/P (MAP) Pulse Ox O2 Delivery O2 Flow Rate FiO2 09/28/20 11:00 80 28 161/91 (114) 92 Room Air 09/28/20 05:13 2.0 09/27/20 23:00 97.8 97.8 Lab Results Laboratory Tests Test 09/27/20 06:00 09/27/20 08:56 09/27/20 11:26 09/27/20 16:03 Sodium Level 138 mmol/L (136-145) Potassium Level 4.1 mmol/L (3.5-5.1) Chloride Level 105 mmol/L (98-107) Carbon Dioxide Level 27 mmol/L (21-32) Anion Gap 6 (6-14) Blood Urea Nitrogen 9 mg/dL (8-26) Creatinine 0.9 mg/dL (0.7-1.3) Estimated GFR (Cockcroft-Gault) 91.7 BUN/Creatinine Ratio 10 (6-20) Glucose Level 98 mg/dL (70-99) Calcium Level 8.3 mg/dL (8.5-10.1) Total Bilirubin 0.9 mg/dL (0.2-1.0) Aspartate Amino Transf (AST/SGOT) 28 U/L (15-37) Alanine Aminotransferase (ALT/SGPT) 35 U/L (16-63) Alkaline Phosphatase 101 U/L (46-116) Creatine Kinase 307 U/L (39-308) Total Protein 7.0 g/dL (6.4-8.2) Albumin 3.0 g/dL (3.4-5.0) Albumin/Globulin Ratio 0.8 (1.0-1.7) Glucose (Fingerstick) 130 mg/dL (70-99) 108 mg/dL (70-99) 108 mg/dL (70-99) Test 09/27/20 20:15 09/28/20 08:00 09/28/20 11:41 Glucose (Fingerstick) 98 mg/dL (70-99) 92 mg/dL (70-99) 99 mg/dL (70-99) Laboratory Tests Test 09/27/20 16:03 09/27/20 20:15 09/28/20 08:00 09/28/20 11:41 Glucose (Fingerstick) 108 mg/dL (70-99) 98 mg/dL (70-99) 92 mg/dL (70-99) 99 mg/dL (70-99) Brief Hospital Course Mr Cotton is a 44 year old male w/ PMHx DM2, HTN, Seizure from prior TBI, smoker, polysubstance use disorder who was brought to ED by his friend for low back pain. On 09/24/2020 was working on a pickup truck, when another pickup truck somehow rolled into him, pinned him against another truck. He then fell down, was then pinned down on the ground underneath the truck. He c/o lower back pain, left shoulder pain, left knee pain and bilateral hands pain and notes multiple abrasions on bilateral hands and lower back. No head injury, but does have headache. He denied any abdominal pain, no nausea or vomiting. He has history of head injury in the past. He denied any numbness in his extremities. No loss of bowel or bladder function, no focal weakness. UTD on tetanus vaccine. Labs with CK 314, Cr 1, BUN 10, glucose 127, Na 137,K 3.8, WBC 9.4, Hb 15.2. CT cervical spine negative for abnormality, left knee radiograph with edema, no fracture. CT lumbar spine with fractures of the right L2-L5 and left L4 and L5 transverse processes. No unstable spinal fracture. No concern for chest abdomen or pelvis bleeding. Incidentally hepatic steatosis noted. His pain was severe, unable to ambulate, requiring IV pain medication, admitted for further care for hydration, pain control and trauma surgery consultation. 09/27: Still having significant pain requiring IV medications. Requiring near m ax assist for transitions and ambulation. Labs improved no renal failure transaminases trending downward. Day of d/c not taking any more IV pain medications and muscle relaxants tramadol like to increase to Percocet on discharge as well as muscle relaxants and Salonpas. He is able to ambulate 30 feet unaided. Vitals/I&O: Vital Signs Date Time Temp Pulse Resp B/P (MAP) Pulse Ox O2 Delivery O2 Flow Rate FiO2 09/27/20 09:04 17 Room Air 09/27/20 07:00 88 153/86 (108) 96 09/27/20 04:46 2.0 09/27/20 03:19 98.5 98.5 I & O 09/26/20 09/26/20 09/27/20 15:00 23:00 07:00 Intake Total 1355 ml 120 ml Output Total 950 ml 1450 ml 1150 ml Balance -950 ml -95 ml -1030 ml Physical Exam General: Alert, Oriented X3, Cooperative, severe distress Abdomen: Normal bowel sounds, Soft, No tenderness, No hepatosplenomegaly, No masses Extremities: No clubbing, No cyanosis, No edema, Normal pulses Skin: Other (multiple abrasions on bilateral knees, back, wrists, hands) Consults: Trauma surgery Problem list: Crush injury - from truck. No internal bleeding noted, trauma surgery consulted Fractures of the right L2-L5 and left L4 and L5 transverse processes - IV-->PO pain control. PT assessed for ambulation and OT to assess for his capabilities of ADLs DM2 - not on meds, does not know his A1c HTN - previously on BB for this and headaches Seizure from prior TBI - previously on dilantin Smoker - counseled on cessation Polysubstance use disorder - counseled on cessation Greater than 30 minutes spent on d/c home. Will use ibuprofen Percocet muscle relaxants and Salonpas Lidoderm patches. Discharge Information Condition at Discharge: Improved Follow Up: Weeks (1) Disposition/Orders: D/C to Home Scheduled PRN Cyclobenzaprine Hcl (Cyclobenzaprine Hcl) 10 Mg Tablet, 10 MG PO PRN Q6HRS PRN for MUSCLE SPASMS for 10 Days, #40 Ref 1 Prescribed by: ISRAEL YEH MD on 09/28/20 1215 Ibuprofen (Ibuprofen) 600 Mg Tablet, 600 MG PO PRN Q6HRS PRN for PAIN, #20 take with food or milk Prescribed by: SHERRELL BOOKER on 04/16/20 0239 Oxycodone/Apap 5-325 (Percocet 5-325 Mg Tablet ) 1 Each Tablet, 1 TAB PO QIDPRN PRN for Lumbar fracture MDD 4 Tablet(s) for 5 Days, #20 Ref 0 Prescribed by: ISRAEL YEH MD on 09/28/20 1215 Discontinued Medications Ibuprofen (Ibuprofen) 600 Mg Tablet, 600 MG PO PRN Q6HRS PRN for INFLAMMATION, #20 Prescribed by: LNIDA HINES APRN on 12/23/18 1211 Naproxen (Naproxen) 500 Mg Tablet, 1 TAB PO BID PRN for PAIN, #30 Ref 1 Prescribed by: OSCAR MORGAN D.O. on 12/17/19 1743 Phenytoin Sodium Extended (Dilantin) 100 Mg Capsule, 100 MG PO TID, (Reported) Entered as Reported by: GEORGINA MCGILL on 11/22/132319 Last Action: Continued on 09/26/202050 by ISRAEL YEH MD Propranolol Hcl (Inderal Xl) 120 Mg Cap.er.24h, 120 MG PO DAILY, (Reported) Entered as Reported by: GEORGINA MCGILL on 11/22/132319 Last Action: Converted on 09/26/202050 by ISRAEL YEH MD Justicifation of Admission Dx: Justifications for Admission: Justification of Admission Dx: No Fracture: Fracture ISRAEL YEH MD Sep 28, 2020 12:20
[2020-09-28] MEDS: traMADol 50 MG TABLET PO PRN (13:11)
[2020-09-28] MEDS: CYCLOBENZAPRINE 10 MG TABLET. PO PRN (13:11)
--- NOTE | 2020-09-28 13:26 | NUR ---
Discharge Note: [facility] Discharge instructions and discharge home medications reviewed with Patient and a copy given. All questions have been answered and understanding verbalized. The following instructions and handouts were given: Back Pain Discontinued IV line. Patient discharged to Home with [facility] via wheelchair.
== END 2020-09-28 13:25 | disposition home or self-care (01) | DRG 552 ==
LOC: ER 20:27 → ED HOLD 09-26 → 6 SOUTH 09-26 03:01
PROVIDERS: ADMIT Internal Medicine; ATTEND Internal Medicine
DX: S32.029A Unspecified fracture of second lumbar vertebra, initial encounter for closed fracture (principal); E11.9 Type 2 diabetes mellitus without complications; S32.039A Unspecified fracture of third lumbar vertebra, initial encounter for closed fracture; S32.049A Unspecified fracture of fourth lumbar vertebra, initial encounter for closed fracture; S32.059A Unspecified fracture of fifth lumbar vertebra, initial encounter for closed fracture; F17.210 Nicotine dependence, cigarettes, uncomplicated; I10 Essential (primary) hypertension; I25.10 Atherosclerotic heart disease of native coronary artery without angina pectoris; K76.0 Fatty (change of) liver, not elsewhere classified; S60.511A Abrasion of right hand, initial encounter; S60.512A Abrasion of left hand, initial encounter; S80.211A Abrasion, right knee, initial encounter; S80.212A Abrasion, left knee, initial encounter; S30.810A Abrasion of lower back and pelvis, initial encounter; F19.90 Other psychoactive substance use, unspecified, uncomplicated; Z82.49 Family history of ischemic heart disease and other diseases of the circulatory system; Z86.73 Personal history of transient ischemic attack (TIA), and cerebral infarction without residual deficits; Z87.442 Personal history of urinary calculi; Z87.828 Personal history of other (healed) physical injury and trauma; Z88.1 Allergy status to other antibiotic agents; Z91.013 Allergy to seafood; Z88.0 Allergy status to penicillin; V59.9XXA Occupant (driver) (passenger) of pick-up truck or van injured in unspecified traffic accident, initial encounter; Y93.89 Activity, other specified; Y92.89 Other specified places as the place of occurrence of the external cause; Y99.8 Other external cause status
CPT/HCPCS: 36415; 70450; 71260; 72125; 73030; 73562; 74177; 80053; 82550; 82962; 83735; 85025; 90471; 90715; 96361; 96374; 96375; 96376; 99285; J1815; J1885; J2270; J2405; J3010; J7030; Q9967; 73130-50; 97530-GP; G0378